=== PATIENT | male | born 1980 | race Caucasian/White ===

== ENCOUNTER 2019-01-28 06:28 | Inpatient (IN) ==
--- NOTE | 2019-01-15 10:53 | PAT Medication Instructions ---
Medication Instructions Date of Service January 15, 2019 Home Medications naproxen sodium [Aleve] 220 mg PO Q12H PRN ASK your surgeon for instructions naproxen sodium [Aleve] 220 mg PO Q12H PRN Other Notes If you have any questions please call us at [phone] or [phone] or [phone] or [phone]
--- NOTE | 2019-01-15 14:14 | Anesthesiology Consultation ---
Date of Service January 15, 2019 Assessment & Plan (1) Encounter for pre-operative examination: - Slight hemolysis on 01/15/19 BMP- at anesthesiologist discretion AM DOS if repeat needed* Chart Review Chart Review: Acceptable Risk for Surgery and Patient seen in Pre Admission Testing Teaching & Discussion Pre-Anesthesia Teaching/Discussion Notes: Instructed NPO after midnight before surgery,except medications with 15 cc of water. Medication instructions p rovided according to the PAT guidelines. History Surgery Operation Date: 01/22/19 07:45 Proposed Procedures p L4-S1 Decompression and Fusion, Spinal Cord Monitoring - Reji Mas DO Height/Weight Height: 5 ft 10 in Weight: 87.3 kg Allergies Allergy/AdvReac Type Severity Reaction Status Date / Time No Known Allergies Allergy Verified 01/14/19 15:06 Medications Home Medications Medication Instructions Recorded Confirmed Last Taken naproxen sodium [Aleve] 220 mg PO Q12H PRN 01/14/19 01/14/19 Unknown Past Medical History Medical History Chronic low back pain with sciatica LLE radiculopathy with LLE neuropathy (occasional) Exercise / Class Metabolic Activity II 4-5 Yardwork/Stairs/Walk up hill Past Family History Family History Father Family history of diabetes mellitus Past Surgical History Surgical History Hx of arthroscopic knee surgery LEFT Past Anesthesia History No Hx of Anesthesia Complications and No Family Hx of Anesthesia Complications History of PONV No Hx of PONV and No Hx of Motion Sickness Social History Smoking Status: Never smoker Do You Dip or Chew Tobacco: No Smoking End Date: STOPPED CHEWING 2 YEARS AGO Hx Alcohol Use: Yes Alcohol type: beer alcohol intake frequency: a few times a week Hx Substance Use: No Review of Systems Patient denies chest pain, shortness of breath, dyspnea on exertion, reflux, cough, wheezing, palpitations. Physical Exam Vital Signs VITALS BP 124/84 P 78 TEMP 98.6 SP02 97%RA RESP 18 PHYSICAL Full neck and c-spine range of motion. Full TMJ range of motion. TMD 3 finger breaths Mallampati Score 3 Dentition: intact, several caps vs. crowns lower front teeth Lungs: clear throughout to auscultation Cardiac: regular rate and rhythm, no murmurs noted Spine: normal Extremities: no edema Trimmed weiner Testing Laboratory Results 01/15/19 14:40 01/15/19 14:40 PT 10.5 Seconds (9.0-12.0) 01/15/19 14:40 INR 1.0 (0.9-1.1) 01/15/19 14:40 APTT 26.2 Seconds (21.0-31.0) 01/15/19 14:40 Urine Color Yellow 01/15/19 14:40 Urine Appearance Turbid (Clear) A 01/15/19 14:40 Urine pH 8.5 (4.5-7.5) H 01/15/19 14:40 Ur Specific [place] 1.019 (1.000-1.030) 01/15/19 14:40 Urine Protein Negative (Negative) 01/15/19 14:40 Urine Glucose (UA) Negative (Negative) 01/15/19 14:40 Urine Ketones Negative (Negative) 01/15/19 14:40 Urine Nitrite Negative (Negative) 01/15/19 14:40 Ur Leukocyte Esterase Negative (Negative) 01/15/19 14:40 Urine WBC (Auto) 0 /hpf (0-5) 01/15/19 14:40 Urine RBC (Auto) 0-4 /hpf (0-4) 01/15/19 14:40 U Hyaline Cast (Auto) 0 /lpf (0-5) 01/15/19 14:40 U Epithel Cells (Auto) 0-5 /lpf (0-5) 01/15/19 14:40 Urine Bacteria (Auto) Negative (Negative) 01/15/19 14:40 Blood Type O Positive 01/15/19 14:40 Antibody Screen NEGATIVE 01/15/19 14:40 Electrocardiogram Date: 01/15/19 Findings: + NSR @ (68) Chest X-Ray Date: 01/15/19 Findings: + NAD
--- NOTE | 2019-01-15 14:42 | XRay Report ---
TWO VIEW CHEST CLINICAL HISTORY: Preoperative examination. FINDINGS: PA and lateral chest radiographs are obtained. No prior studies are available for compariso n at the time of dictation. The cardiomediastinal silhouette is unremarkable. The lungs and pleural spaces are clear. There is no pneumothorax. The bony thorax appears intact. IMPRESSION: No active disease in the chest. Electronically signed by: Paolo Estrada M.D. 01/15/2019 2:41 PM
[2019-01-15 15:54] LABS: Basophils # (auto) 0.02 K/uL (0-0.2); Basophils % (auto) 0.3 %; Eosinophils # (auto) 0.08 K/uL (0-0.5); Eosinophils % (auto) 1.1 %; Hematocrit (blood only) 48.7 % (42-52); Hemoglobin 16.7 g/dL (14.0-18.0); Immature Granulocytes # (auto) 0.02 K/uL (0.00-0.02); Immature Granulocytes % (auto) 0.3 %; Lymphocytes # (auto) 2.42 K/uL (1.2-3.4); Lymphocytes % (auto) 31.8 %; Mean Corpuscular Hemoglobin 29.9 pg (25-34); Mean Corpuscular Hgb Conc 34.3 g/dL (32-36); Mean Corpuscular Volume 87.1 fL (80-100); Mean Platelet Volume 10.6 fL (7.4-10.4); Monocytes # (auto) 0.64 K/uL (0.11-0.59); Monocytes % (auto) 8.4 %; Neutrophils # (auto) 4.43 K/uL (1.4-6.5); Neutrophils % (auto) 58.1 %; Platelet Count 196 K/uL (130-400); RDW Standard Deviation 41.4 fL (36.4-46.3); Red Blood Count 5.59 M/uL (4.7-6.1); White Blood Count 7.61 K/uL (4.8-10.8)
[2019-01-15 16:05] LABS: Appearance Urine Turbid (Clear); Bacteria Urine Automated Negative (Negative); Bilirubin Urine Negative (Negative); Blood Urine Negative (Negative); Cast Urine Automated 0 /lpf (0-5); Color Urine Yellow; Epithelial Cell Urine Auto 0-5 /lpf (0-5); Glucose Urine UA Negative (Negative); Ketones Urine Negative (Negative); Leukocyte Esterase Urine Negative (Negative); Nitrite Urine Negative (Negative); Protein Urine Negative (Negative); RBC Urine Automated 0-4 /hpf (0-4); Specific Gravity Urine 1.019 (1.000-1.030); Urobilinogen Urine Negative (Negative); WBC Urine Automated 0 /hpf (0-5); pH Urine 8.5 (4.5-7.5)
[2019-01-15 16:14] LABS: Partial Thromboplastin Time 26.2 Seconds (21.0-31.0); Prothrombin Time 10.5 Seconds (9.0-12.0)
[2019-01-15 17:04] LABS: BUN Creatinine Ratio 14.7 (10-20); Calcium 8.8 mg/dl (8.5-10.1); Creatinine Clr Calc Pharmacy 91.5 ml/min; Potassium 3.9 mmol/L (3.5-5.1)
[~2019-01-28 06:28] MED LIST: CEFAZOLIN 2000MG 2,000 MG/15 ML SYR IV SCH; LR 15ML/HR IV SCH
[2019-01-28] MEDS ORDERED: fentaNYL citrate 100 MCG/2 ML VIAL ONE ×7 (06:38→10:00)
[2019-01-28] MEDS ORDERED: MIDAZOLAM HCL 1 MG/ML 2ML VIAL ONE (06:39)
[2019-01-28] MEDS ORDERED: HYDROmorphone INJ 2 MG/ML SYR/VIAL ONE ×3 (06:39→10:00)
[2019-01-28] MEDS ORDERED: BACITRACIN INJ 50,000 UNIT VIAL ONE (07:06)
[2019-01-28] MEDS ORDERED: BUPIVACAINE/EPINEPHRINE 0.5% MPF 1:200,000 30 ML VIAL ONE (07:06)
[2019-01-28] MEDS ORDERED: PROMETHAZINE HCL 12.5 MG in SODIUM CHLORIDE 0.9% 50 ML IV PRN ×2 (07:31→11:51)
[2019-01-28] MEDS ORDERED: HYDROmorphone INJ 2 MG/ML SYR/VIAL IV PRN (07:31)
[2019-01-28] MEDS ORDERED: ONDANSETRON INJ 2 MG/ML 2 ML VIAL IV PRN ×2 (07:31→11:51)
[2019-01-28] MEDS ORDERED: ePHEDrine sulfate 50 MG/ML AMP IV PRN (07:31)
[2019-01-28] MEDS ORDERED: ATROPINE SULFATE 0.1 MG/ML 10ML SYR IV PRN (07:31)
--- NOTE | 2019-01-28 07:36 | History & Physical Bridge Note ---
Date of Service January 28, 2019 History & Physical Bridge Note I have examined the patient, reviewed the History & Physical and in the interval since the performance of the History & Physical I have noted the following changes of clinical significance: no changes noted
--- NOTE | 2019-01-28 07:38 | History & Physical Report ---
Date of Service January 28, 2019 Assessment & Plan (1) Spinal stenosis, lumbar region with neurogenic claudication: L4-S1 decompression and fusion Present on Admission?: Yes History of Present Illness Chief Complaint: Back and leg pain Primary Care Provider: Phillip Friend PA-C This is a 38-year-old male presents with chronic persistent back and leg pain after failing extensive course of nonoperative care is here for surgical intervention. Allergies Allergy/AdvReac Type Severity Reaction Status Date / Time No Known Allergies Allergy Verified 01/28/19 06:55 Home Medications Home Medications Medication Instructions Recorded Confirmed Type naproxen sodium [Aleve] 220 mg PO Q12H PRN 01/14/19 01/28/19 History Past Med/Surg History Medical History Chronic low back pain with sciatica LLE radiculopathy with LLE neuropathy (occasional) Surgical History Hx of arthroscopic knee surgery LEFT Family History Father Family history of diabetes mellitus Social History Preferred Language: Jordanian Communication Ability: Effective Beliefs That Will Affect Care: None Current Living Situation: Family Feels Safe at Home: Yes Smoking Status: Never smoker Do You Dip or Chew Tobacco: No ; Smoking End Date: STOPPED CHEWING 2 YEARS AGO ; Second Hand Exposure: No ; Hx Alcohol Use: Yes Alcohol type: beer Hx Substance Use: No Physical Exam Physical Exam: Patient alert and oriented neurologically intact. Results & Data Vital Signs (Past 12 Hours) Vital Signs Temp Pulse Resp BP Pulse Ox 01/28/19 06:57 36.8 C 88 18 132/85 97
[2019-01-28] MEDS ORDERED: FLOSEAL HEMOSTATIC MATRIX 10ML TOP ONE (08:40)
[2019-01-28] MEDS ORDERED: FLOSEAL HEMOSTATIC MATRIX 5ML TOP ONE (08:40)
[2019-01-28] MEDS ORDERED: LIDOCAINE HCL 2% 2 ML VIAL/AMP(20MG/ML) INFIL ONE (08:44)
[2019-01-28] MEDS ORDERED: NEOSTIGMINE METHYLSULFATE 1 MG/ML 10ML VIAL ONE (08:44)
[2019-01-28] MEDS ORDERED: PROPOFOL IV EMULSION 10 MG/ML 20 ML VIAL IV ONE (08:44)
[2019-01-28] MEDS ORDERED: ONDANSETRON INJ 2 MG/ML 2 ML VIAL ONE (08:44)
[2019-01-28] MEDS ORDERED: DEXAMETHASONE SOD INJ 4 MG/ML VIAL ONE (08:44)
[2019-01-28] MEDS ORDERED: ROCURONIUM BROMIDE 10 MG/ML 5 ML VIAL ONE (08:44)
[2019-01-28] MEDS ORDERED: GLYCOPYRROLATE 0.2 MG/ML VIAL ONE (08:44)
[2019-01-28] MEDS ORDERED: ESMOLOL HCL INJ 10 MG/ML 10ML VIAL IV ONE (08:44)
[2019-01-28] MEDS ORDERED: KETOROLAC 30 MG/ML VIAL ONE (10:01)
[2019-01-28] MEDS ORDERED: LARYING-O-JET KIT (LTA) ONE (10:01)
--- NOTE | 2019-01-28 10:22 | Operative Report ---
Post Operative Report Pre & Post Diagnosis Operation Date: 01/22/19 10:25 <No data on this case meets the specified criteria> Operation Date: 01/28/19 07:45 Pre-Op Diagnosis: LUMBAR SPINAL STENOSIS W/OUT NEUROGENIC CLAUDICATI Post-Op Diagnosis: LUMBAR SPINAL STENOSIS W/OUT NEUROGENIC CLAUDICATI Procedure Operation Date: 01/22/19 10:25 <No data on this case meets the specified criteria> Operation Date: 01/28/19 07:45 Actual Procedures #1 lumbar decompression with bilateral medial facetectomies and foraminotomies L4-5 L5-S1. #2 posterior spinal fusion L4-5 L5-S1. #3 placement posterior instrumentation L4-5 L5-S1. #4 interbody fusion L4-5 L5-S1. #5 placement of titanium 12 x 26 mm cage at L4-5 and L5-S1. #6 placement of local autograft in the posterior lateral gutters. #7 placement infuse collagen sponge, master graft in the posterior lateral gutters and ostial amp and interbody space. Surgeon Reji Mas, DO Conservation Worker None Estimated Blood Loss 225 Findings Consistent with Post-Op Diagnosis Specimens None Indications 38-year-old male presents with above-mentioned diagnosis after failing extensive course of nonoperative care he elected undergo the above-mentioned procedure. Description of Procedure Patient was met with identified and informed consent obtained. Patient was then taken to the operative suite underwent intubation placed in a prone position the Ranjeet table on top of the Sriram frame. All bony prominences well-padded eyes inspected to ensure no external pressure placed upon. This point the lumbar spine was prepped and draped in the normal sterile fashion. Sharp dissection with the assistance of Bovie cautery was performed down to and exposing the lamina and transverse processes of L4-L5 and the sacral ala bilaterally. From a caudal to cephalad fashion complete laminectomy L5 and L4 was performed including bilateral medial facetectomies and foraminotomies addressing significant neural compression. Pedicle screws were then placed in L4-L5 and S1 levels bilaterally with assistance of fluoroscopy the purposes oscar placed. By way of a transforaminal approach on the left complete discectomy of L5-S1 was performed in plate graded to subcortical bleeding bone and a 12 x 26 mm titanium cage filled with osteo-amp bone graft tapped in position. Then proceeded to L4- [address] of a trans-foraminal approach on the left complete discectomy performed in plate graded to subcortical bleeding bone and a 12 x 26 mm titanium cage filled with osteo-amp bone graft tapped into position. Rods were then compressed locked into final position bilaterally. The transverse processes of L4-L5 and the sacral ala bur to subcortical bleeding bone. Infuse collagen sponge master graft local autograft placed in the posterior lateral gutters. 15 round HITESH inserted. Incision was then closed with 1 Vicryl in the fascia 2-0 Vicryl subcutaneously and 4 Monocryl for final skin closure. Steri-Strips dressings placed. Patient will continue to PACU stable condition. Please note spinal cord monitoring was utilized that the procedure no changes noted. I attest to the content of the Intraoperative Record and any orders documented therein. Any exceptions are noted below.
[2019-01-28] MEDS: fentaNYL citrate 100 MCG/2 ML VIAL IV PRN ×2 (10:50→10:55)
--- NOTE | 2019-01-28 11:02 | Fluoroscopy Report ---
FL lumbar spine 2-3V CLINICAL HISTORY: L4-S1 DECOMPRESSION/FUSION COMPARISON STUDY: None. FLUOROSCOPY TIME: 23 seconds. FLUOROSCOPIC IMAGES: 2. FINDINGS: These images demonstrate L4-L5 and L5-S1 discectomies with interbody spacer placement. Ther e is a posterior decompression with bilateral pedicle screws at the L4, L5 and S1 levels with interco nnecting rods. Hardware is intact. There are no unexpected radiopaque foreign bodies. IMPRESSION: Expected findings following L4-S1 posterior decompression, discectomy and bilateral pedic le screw fusion. Electronically signed by: Emerson Gutiérrez M.D. 01/28/2019 11:01 AM
--- NOTE | 2019-01-28 11:15 | Anesthesiology Progress Note ---
Date of Service January 28, 2019 Anesthesia Post Procedure Vital Signs Vital Signs: Temp Pulse Pulse Resp BP Pulse Ox 01/28/19 11:10 36.8 C 94 H 13 121/81 99 01/28/19 11:00 36.2 C L 93 H 15 129/83 100 01/28/19 10:50 36.2 C L 93 H 11 L 153/90 H 100 01/28/19 10:40 36.2 C L 89 14 136/89 100 01/28/19 10:30 36.2 C L 95 H 14 116/85 96 01/28/19 06:57 36.8 C 88 18 132/85 97 Pain Intensity Lower Back: Pain Intensity: 2 Transfer of Care Handoff Completed per policy Notes Mental Status: alert / awake / arousable and participated in evaluation Patient Amnestic to Procedure: Yes Nausea / Vomiting: adequately controlled Pain: adequately controlled Airway Patency, RR, SpO2: stable & adequate BP & HR: stable & adequate Hydration State: stable & adequate Anesthetic Complications: no major complications apparent and Pt Satisfied with anesthetic care
[2019-01-28] MEDS ORDERED: MAGNESIUM HYDROXIDE SUSP 30 ML UDC PO PRN (11:51)
[2019-01-28] MEDS ORDERED: NALOXONE HCL 0.4 MG/1 ML VIAL/CARP IV PRN (11:51)
[2019-01-28] MEDS ORDERED: ONDANSETRON 4 MG TAB PO PRN (11:51)
[2019-01-28] MEDS ORDERED: ALUMINUM/MAGNESIUM SUSP 30 ML UDC PO PRN (11:51)
[2019-01-28] MEDS ORDERED: SOD PHOSPHATE/SOD BIPHOSPHATE ENEMA 132 ML BTL PR PRN (11:51)
[2019-01-28] MEDS ORDERED: ACETAMINOPHEN 1,000 MG/100 ML VIAL IV PRN (11:51)
[2019-01-28] MEDS ORDERED: LORazepam 0.5 MG/1 ML VIAL IV PRN (11:51)
[2019-01-28] MEDS ORDERED: METOCLOPRAMIDE HCL INJ 5 MG/ML 2 ML VIAL IV PRN (11:51)
[2019-01-28] MEDS ORDERED: DO NOT ADMINISTER FLU VACCINE PRN (11:51)
[2019-01-28] MEDS ORDERED: ACETAMINOPHEN 500 MG TAB PO PRN (11:51)
[2019-01-28] MEDS ORDERED: FAMOTIDINE 20 MG TAB PO PRN (11:51)
[2019-01-28] MEDS ORDERED: LORazepam 0.5 MG TAB PO PRN (11:51)
[2019-01-28] MEDS ORDERED: DO NOT ADMINISTER PNEUMOCOCCAL VACCINE PRN (11:51)
[2019-01-28] MEDS ORDERED: BISACODYL 10 MG SUPP PR PRN (11:51)
[2019-01-28] MEDS: LACTATED RINGER'S 1,000 ML IV SCH ×3 (12:04→23:30)
[2019-01-28] MEDS: KETOROLAC 30 MG/ML VIAL IV SCH ×3 (12:40→23:30)
[2019-01-28] MEDS: OXYCODONE HCL IR 5 MG TAB (IMMEDIATE RELEASE) PO PRN ×2 (13:10→21:00)
[2019-01-28] MEDS: CEFAZOLIN 2000MG 2,000 MG/15 ML SYR IV SCH ×2 (14:33→22:24)
[2019-01-28] MEDS: DOCUSATE SODIUM/SENNA 50/8.6MG TAB PO SCH (21:00)
[2019-01-29] MEDS: POLYETHYLENE (MIRALAX) 17 GM PACK PO SCH ×4 (05:49→23:16)
[2019-01-29] MEDS: KETOROLAC 30 MG/ML VIAL IV SCH (05:50)
[2019-01-29 06:21] LABS: Basophils # (auto) 0.01 K/uL (0-0.2); Basophils % (auto) 0.1 %; Eosinophils # (auto) 0.02 K/uL (0-0.5); Eosinophils % (auto) 0.2 %; Hematocrit (blood only) 38.3 % (42-52); Hemoglobin 13.4 g/dL (14.0-18.0); Immature Granulocytes # (auto) 0.01 K/uL (0.00-0.02); Immature Granulocytes % (auto) 0.1 %; Lymphocytes # (auto) 1.39 K/uL (1.2-3.4); Lymphocytes % (auto) 14.3 %; Mean Corpuscular Hemoglobin 29.1 pg (25-34); Mean Corpuscular Volume 83.1 fL (80-100); Mean Platelet Volume 9.5 fL (7.4-10.4); Monocytes # (auto) 1.06 K/uL (0.11-0.59); Monocytes % (auto) 10.9 %; Neutrophils % (auto) 74.4 %; Platelet Count 153 K/uL (130-400); RDW Coefficient of Variation 12.8 % (11.5-14.5); RDW Standard Deviation 38.7 fL (36.4-46.3); Red Blood Count 4.61 M/uL (4.7-6.1); White Blood Count 9.69 K/uL (4.8-10.8)
[2019-01-29 06:55] LABS: BUN Creatinine Ratio 13.9 (10-20); Calcium 7.9 mg/dl (8.5-10.1); Creatinine Clr Calc Pharmacy 116.2 ml/min; Est GFR (African American) 125.7; Est GFR (Non-African American) 108.5
[2019-01-29] MEDS: OXYCODONE HCL IR 5 MG TAB (IMMEDIATE RELEASE) PO PRN ×4 (07:24→22:20)
--- NOTE | 2019-01-29 08:33 | Anesthesiology Progress Note ---
Date of Service January 29, 2019 Anesthesia Post Procedure Vital Signs Vital Signs: Temp Pulse Pulse Resp BP Pulse Ox 01/29/19 07:30 36.6 C 68 16 115/75 94 01/29/19 03:06 36.8 C 96 H 16 107/64 95 01/28/19 23:25 36.7 C 104 H 16 105/66 94 01/28/19 19:10 36.8 C 82 17 115/74 97 01/28/19 15:41 36.8 C 93 H 17 111/74 96 01/28/19 14:32 80 18 119/78 100 01/28/19 13:39 36.7 C 89 18 117/74 98 01/28/19 12:29 101 H 16 120/70 99 01/28/19 12:07 36.4 C L 85 18 115/77 97 01/28/19 11:35 36.7 C 85 18 111/75 92 01/28/19 11:20 36.8 C 87 15 129/79 99 01/28/19 11:10 36.8 C 94 H 13 121/81 99 01/28/19 11:00 36.2 C L 93 H 15 129/83 100 01/28/19 10:50 36.2 C L 93 H 11 L 153/90 H 100 01/28/19 10:40 36.2 C L 89 14 136/89 100 01/28/19 10:30 36.2 C L 95 H 14 116/85 96 Pain Intensity Lower Back: Pain Intensity: 3 Notes Mental Status: alert / awake / arousable and participated in evaluation Patient Amnestic to Procedure: Yes Nausea / Vomiting: adequately controlled Pain: adequately controlled Airway Patency, RR, SpO2: stable & adequate BP & HR: stable & adequate Hydration State: stable & adequate Anesthetic Complications: no major complications apparent and Pt Satisfied with anesthetic care
--- NOTE | 2019-01-29 13:42 | Orthopedic Progress Note ---
Date of Service January 29, 2019 Assessment & Plan (1) Spinal stenosis, lumbar region with neurogenic claudication: Patient doing nicely postoperatively. We will continue with physical therapy monitor HITESH output anticipate discharge home Sunday. Present on Admission?: Yes Subjective Patient's back pain is controlled leg symptoms markedly improved. Physical Exam Physical Exam: Patient is good strength testing appears comfortable ambulating without difficulty. Results & Data Vital Signs (Past 12 Hours) Vital Signs Temp Pulse Resp BP Pulse Ox 01/29/19 07:30 36.6 C 68 16 115/75 94 01/29/19 03:06 36.8 C 96 H 16 107/64 95
[2019-01-29] MEDS: TRAMADOL HCL 50 MG TABLET PO PRN (15:38)
[2019-01-29] MEDS: DOCUSATE SODIUM/SENNA 50/8.6MG TAB PO SCH (20:36)
[2019-01-30] MEDS: TRAMADOL HCL 50 MG TABLET PO PRN (01:38)
[2019-01-30] MEDS: OXYCODONE HCL IR 5 MG TAB (IMMEDIATE RELEASE) PO PRN ×4 (05:05→18:55)
[2019-01-30] MEDS: POLYETHYLENE (MIRALAX) 17 GM PACK PO SCH ×3 (05:06→18:02)
--- NOTE | 2019-01-30 08:19 | Orthopedic Progress Note ---
Date of Service January 30, 2019 Assessment & Plan (1) Spinal stenosis, lumbar region with neurogenic claudication: This time we will continue physical therapy monitor his HITESH output anticipate discharge home tomorrow. Present on Admission?: Yes Subjective Patient's back pain is controlled leg symptoms markedly improved. Physical Exam Physical Exam: On exam is good strength testing. Appears comfortable. Results & Data Vital Signs (Past 12 Hours) Vital Signs Temp Pulse Resp BP Pulse Ox 01/30/19 07:40 37.1 C 97 H 18 132/86 98 01/29/19 23:04 37.4 C 107 H 16 117/75 93
[2019-01-30] MEDS: DOCUSATE SODIUM/SENNA 50/8.6MG TAB PO SCH (20:11)
[2019-01-30] MEDS: HYDROmorphone INJ 0.5 MG/0.5 ML SYR IV PRN (21:33)
[2019-01-31] MEDS: OXYCODONE HCL IR 5 MG TAB (IMMEDIATE RELEASE) PO PRN ×4 (00:23→16:00)
[2019-01-31] MEDS ORDERED: Nursing to Pharmacy Communication ONE (00:31)
[2019-01-31] MEDS: POLYETHYLENE (MIRALAX) 17 GM PACK PO SCH (00:50)
[2019-01-31] MEDS: HYDROmorphone INJ 0.5 MG/0.5 ML SYR IV PRN ×2 (02:06→08:04)
[2019-01-31] MEDS: TRAMADOL HCL 50 MG TABLET PO PRN ×4 (07:04→22:51)
[2019-01-31] MEDS ORDERED: KETOROLAC 30 MG/ML VIAL IV ONE (09:52)
[2019-01-31] MEDS ORDERED: DEXAMETHASONE SOD PHOSPHATE 8 MG in SYRINGE 0 ML IV ONE (10:30)
--- NOTE | 2019-01-31 12:24 | Orthopedic Progress Note ---
Date of Service January 31, 2019 Assessment & Plan (1) Spinal stenosis, lumbar region with neurogenic claudication: At this time he has significant postoperative back pain. He is also struggling with some urinary retention. We will begin Toradol today asked that he decrease narcotics to the best of his ability. We will discontinue his drain today. Reassess in a.m. hopefully discharge home tomorrow. Present on Admission?: Yes Subjective Patient complaining of fairly severe back pain and difficulty urinating. Physical Exam Physical Exam: Leg symptoms are still markedly improved. Neurologically intact but in obvious pain or discomfort today. Results & Data Vital Signs (Past 12 Hours) Vital Signs Temp Pulse Resp BP Pulse Ox 01/31/19 06:52 38.0 C H 107 H 18 112/83 97 01/31/19 00:28 37.6 C H
[2019-01-31] MEDS: KETOROLAC 30 MG/ML VIAL IV PRN (17:50)
[2019-01-31] MEDS: DOCUSATE SODIUM/SENNA 50/8.6MG TAB PO SCH (19:08)
[2019-02-01] MEDS: OXYCODONE HCL IR 5 MG TAB (IMMEDIATE RELEASE) PO PRN (00:16)
[2019-02-01] MEDS: KETOROLAC 30 MG/ML VIAL IV PRN (01:13)
[2019-02-01] MEDS: TRAMADOL HCL 50 MG TABLET PO PRN ×2 (05:58→10:46)
--- NOTE | 2019-02-01 10:12 | Discharge Summary ---
Date of Service February 01, 2019 Admission HPI Per Admitting Provider This is a 38-year-old male presents with chronic persistent back and leg pain after failing extensive course of nonoperative care is here for surgical intervention. Principal Diagnosis Lumbar spinal stenosis with neurogenic claudication and radiculopathy Discharge Data Allergies Allergy/AdvReac Type Severity Reaction Status Date / Time No Known Allergies Allergy Verified 01/28/19 06:55 Consultations 01/28/19 11:51 Consult Case Management - Discharge Planning Routine Procedures Performed Operation Date: 01/22/19 10:25 <No data on this case meets the specified criteria> Operation Date: 01/28/19 07:45 Actual Procedures p L4-S1 Decompression and Fusion, Spinal Cord Monitoring(Not Applicable) - Reji Mas DO Ordered Studies 01/28/19 07:45 FL fluoroscopy <1hr Routine [place] lumbar spine 2-3V Routine Hospital Course (1) Spinal stenosis, lumbar region with neurogenic claudication: Patient underwent lumbar decompression fusion tolerated this well was taken to the orthopedic for postoperative. Postop day 1 he was up and ambulating leg pain markedly improved he progressed appropriately throughout his hospital stay HITESH drain decreasing appropriately. Pain controlled. Subsequently discharged home. Discharge orders instructions from the chart for further review. Total Time Total Time Spent Total Time Spent (In Minutes): 30 minutes Discharge Plan Discharge Items Patient Disposition: Home - Self-Care Reason For Visit: LUMBAR SPINAL STENOSIS W/OUT NEUROGENIC CLAUDICATI Discharge Diagnosis: Lumbar spinal stenosis with neurogenic claudication Discharge Goals: Decrease discomfort Activity: Per 'Additional Instructions' section Non-emergency contact: Primary Care Provider Call non-emergency contact if: you have any medication questions Follow-up/Referrals: Phillip Friend PA-C [Primary Care Provider] - Diet: Regular Addtl Provider Instructions: ACTIVITY RECOMMENDATIONS: SELF CARE INSTRUCTIONS AFTER THORACIC/LUMBAR FUSIONS 1. You may walk to your tolerance. It is good exercise for your legs and back. Expect some back and intermittent leg aches and pains. 2. You may perform "counter-top" level activities (make a sandwich, thierry with a project, etc.). 3. No bending or lifting of more than 10 pounds or back twisting of any nature (roll like a log when turning in bed). 4. You may ride in a car for 20-30 minutes at a time. No driving until after your first visit with your doctor. 5. Frequent changes of position and restricting sitting to 30 minutes at a time will help limit the amount of back spasms and stiffness you may experience. 6. You may discontinue the use of ambulatory aids (cane, crutches, etc.) once your strength and confidence allow. 7. You may manager financial the shower and let water strike your incision when you arrive home at least once daily. Do not take a tub bath, sit in a hot tub or go into a swimming pool until after your first recheck in the office. SPECIAL CARE INSTRUCTIONS: VERY IMPORTANT TO READ AND REVIEW A. Your surgical incision has been closed with a cosmetic suture under the skin that will dissolve in about 6 weeks. In 14 days, you can use a pair of clean scissors and cut the suture that is left outside of the skin at the ends of your incision. 1. The small skin tapes can be removed 7 days after surgery if they have not fallen off by that point. 2. You may keep the wound open to air as much as possible to promote healing after post-op day number 5 unless told otherwise by your doctor. 3. If you think the wound looks like it is becoming infected (redness or worsening drainage) and/or you are experiencing fever, chill or worsening back pain and muscle spasms, contact the office so that we may evaluate you as soon as possible. B. Complications are uncommon, but please contact us if you have any signs or symptoms of: 1. wound infection (fever higher than 102.5 degrees F, redness, separation of wound, drainage, or increasing pain from the incision) 2. blood clots in legs (pain, swelling, redness and warmth in legs) 3. urinary tract infection (fever higher than 102.5 degrees F, burning upon urination or increased frequency of urination) 4. nerve problems (inability to walk on your toes or heels, numbness, loss of bowel or bladder control) 5. any other symptoms that concern you C. Please call the office at if you have any concerns or questions about your operation or recovery. D. No smoking! Smoking drastically decreases the chance of a solid fusion. E. Do not take any anti-inflammatory medications (Indocin, Advil, Motrin, Aspirin, Naprosyn, etc.) as these may inhibit the chance of a solid fusion. Tylenol is okay to take for pain. MANAGING PAIN AFTER SPINAL SURGERY 1. Narcotic medication is intended for short-term use and will be provided for surgical pain. Surgical pain usually lasts for a period of 4-6 weeks. Narcotic medication includes Percocet, Vicodin, Darvocet, Tylenol #3 or Lortab. 2. Longer-term pain is more appropriately treated with non-narcotic medication such as Tylenol ES. 3. Muscle spasm is not appropriately treated with narcotics. Muscle relaxers such as Soma, Flexeril or Skelaxin can be used along with Tylenol ES. 4. Remember that we all live with some "aches and pains". This is not unusual or uncommon after an injury or as we get older. a. Back pain is expected and may include muscle spasms for 4 to 6 weeks after surgery. The pain should gradually improve. If the pain worsens for no apparent reason, please contact the office. b. Intermittent leg pain may also be experienced and should not be concerned about unless it worsens for no apparent reason. If so, please contact the office. 5. We will provide appropriate medication within the normal guidelines of their prescribed use. We will also be very cautious and aware of potential abuse and extended duration of patients' medication needs. a. Pain medications are for your comfort and to assist with sleep and rest so that the tissue can heal. They are not provided in order to return to normal activity and should not be used through the day. To do so or worsening pain at night can result from ongoing tissue damage and development of tolerance to the prescribed medicine. 6. Please allow 2-3 days to process refills. Prescriptions will not be mailed but must be picked up at the office. FOLLOW UP VISIT: Keep your scheduled follow-up appointment. Any questions, please call the office at . Prescriptions: New tramadol 50 mg Tablet 50 mg PO Q4H PRN (Reason: Pain, Moderate) Qty: 30 RF: 0 oxycodone 5 mg Tablet 5 mg PO Q4H PRN (Reason: Pain, Severe) Qty: 30 RF: 0 Continued naproxen sodium [Aleve] 220 mg Capsule 220 mg PO Q12H PRN (Reason: Pain) RF: 0 Stand-Alone Forms: [facility] Discharge Orders: Discharge Order (Routine); Ordered 02/01/19 Ordered By: Reji Mas Admission Data Admit Date/Time: 01/28/19 10:25 Attending Provider: Reji Mas Admit Provider: Reji Mas Primary Care Provider: Phillip Friend Service: Surgical Services
== END 2019-02-01 12:15 | disposition home or self-care (01) | DRG 455 ==
LOC: ASU 06:28 → 3E 10:25
DX: M48.062 Spinal stenosis, lumbar region with neurogenic claudication

== ENCOUNTER 2019-02-18 13:06 | Inpatient (IN) ==
[2019-02-18] MEDS ORDERED: LORazepam 1 MG/2 ML VIAL IV PRN (14:13)
[2019-02-18] MEDS ORDERED: PROMETHAZINE HCL 12.5 MG in SODIUM CHLORIDE 0.9% 50 ML IV PRN (14:13)
[2019-02-18] MEDS ORDERED: ONDANSETRON INJ 2 MG/ML 2 ML VIAL IV PRN (14:13)
[2019-02-18] MEDS ORDERED: ACETAMINOPHEN 325 MG TAB PO PRN (14:13)
[2019-02-18] MEDS ORDERED: PATIENT'S HEIGHT AND/OR WEIGHT NEEDED SCH (14:30)
[2019-02-18 14:47] LABS: Basophils # (auto) 0.01 K/uL (0-0.2); Basophils % (auto) 0.1 %; Eosinophils # (auto) 0.02 K/uL (0-0.5); Eosinophils % (auto) 0.2 %; Hematocrit (blood only) 42.9 % (42-52); Hemoglobin 14.5 g/dL (14.0-18.0); Immature Granulocytes # (auto) 0.02 K/uL (0.00-0.02); Immature Granulocytes % (auto) 0.2 %; Lymphocytes # (auto) 0.83 K/uL (1.2-3.4); Lymphocytes % (auto) 9.5 %; Mean Corpuscular Hgb Conc 33.8 g/dL (32-36); Mean Corpuscular Volume 83.6 fL (80-100); Mean Platelet Volume 9.7 fL (7.4-10.4); Monocytes # (auto) 0.65 K/uL (0.11-0.59); Monocytes % (auto) 7.4 %; Neutrophils # (auto) 7.24 K/uL (1.4-6.5); Neutrophils % (auto) 82.6 %; Platelet Count 224 K/uL (130-400); RDW Coefficient of Variation 12.7 % (11.5-14.5); RDW Standard Deviation 38.6 fL (36.4-46.3); Red Blood Count 5.13 M/uL (4.7-6.1); White Blood Count 8.77 K/uL (4.8-10.8)
[2019-02-18] MEDS: LACTATED RINGER'S 1,000 ML IV SCH (15:03)
[2019-02-18 15:04] LABS: Albumin Level 3.4 gm/dl (3.4-5.0); BUN Creatinine Ratio 10.9 (10-20); Calcium 9.1 mg/dl (8.5-10.1); Creatinine Clr Calc Pharmacy 90.7 ml/min; Est GFR (Non-African American) 81.1; Potassium 4.2 mmol/L (3.5-5.1)
[2019-02-18 15:06] LABS: Albumin Globulin Ratio 0.8 (0.9-2); Bilirubin,Total 0.6 mg/dl (0.2-1); Globulin 4.3 gm/dl (2.5-4.0); Total Protein 7.7 gm/dl (6.4-8.2)
[2019-02-18] MEDS: OXYCODONE/ACETAMINOPHEN 5mg/325mg TAB PO PRN ×2 (15:17→19:36)
[2019-02-18] MEDS: LORazepam 1 MG TAB PO PRN ×2 (16:29→22:34)
[2019-02-18] MEDS: HYDROmorphone INJ 1 MG/ML SYRINGE IV PRN ×2 (18:04→23:40)
[2019-02-18] MEDS: DOCUSATE SODIUM 100 MG CAP PO SCH (19:37)
[2019-02-19] MEDS: OXYCODONE/ACETAMINOPHEN 5mg/325mg TAB PO PRN ×5 (03:31→21:39)
[2019-02-19] MEDS: LACTATED RINGER'S 1,000 ML IV SCH ×2 (03:31→15:54)
[2019-02-19] MEDS ORDERED: CEFAZOLIN 2000MG 2,000 MG/15 ML SYR IV SCH (06:00)
[2019-02-19] MEDS: DOCUSATE SODIUM 100 MG CAP PO SCH ×2 (07:51→20:21)
[2019-02-19] MEDS: HYDROmorphone INJ 1 MG/ML SYRINGE IV PRN ×4 (08:49→23:27)
--- NOTE | 2019-02-19 09:34 | History & Physical Report ---
Date of Service February 19, 2019 Assessment & Plan (1) Spinal stenosis, lumbar region with neurogenic claudication: At this time patient was admitted for adequate pain control and to have him evaluated for anesthesia for urgent revision decompression fusion L5-S1. Risk benefits pros cons and alternatives were outlined in detail. Patient understands and agrees. At this time we are awaiting authorization for surgery soon as possible. Present on Admission?: Yes History of Present Illness Chief Complaint: Severe left leg pain. Primary Care Provider: Phlilip Friend PA-C This is a 38-year-old male well-known to the status post lumbar decompression and fusion L4-5 L5-S1. Unfortunately several days postop he began experiencing left leg pain. It was severe in nature. Markedly limiting controlled with medication. Imaging performed in office does demonstrate evidence of migration of the L5-S1 interbody cage posteriorly. This would account for his radiculopathy. Due to his severe pain and inability to manage it at home he was admitted to the hospital and we are planning an urgent revision procedure. Allergies Allergy/AdvReac Type Severity Reaction Status Date / Time No Known Allergies Allergy Verified 01/28/19 06:55 Home Medications Home Medications Medication Instructions Recorded Confirmed Type naproxen sodium [Aleve] 220 mg PO Q12H PRN 01/14/19 01/28/19 History oxycodone 5 mg PO Q4H PRN #30 tab 01/29/19 Rx tramadol 50 mg PO Q4H PRN #30 tab 01/29/19 Rx Past Med/Surg History Social History Preferred Language: German Communication Ability: Effective Baseball Scout Required: No Beliefs That Will Affect Care: None marital status: Current Living Situation: Family Other Information That Helps Us Care for You: No Feels Safe at Home: Yes Smoking Status: Never smoker Do You Dip or Chew Tobacco: No ; Second Hand Exposure: No ; Tobacco Cessation Education Requested by Patient: No Hx Alcohol Use: Yes Alcohol type: beer Hx Substance Use: No Physical Exam Physical Exam: On exam he can stand only. He is obviously lost weight over the past several days as he is been able to eat secondary to pain. He is able to stand on his toes and heels but there is appreciable atrophy on the left calf compared to the right. He has severe gross tension signs with straight leg raising on the left. Results & Data Vital Signs (Past 12 Hours) Vital Signs Temp Pulse Pulse Resp BP Pulse Ox 09/11/19 07:30 37 C 102 H 14 118/76 92 02/18/19 23:27 37.5 C 105 H 18 128/79 Code Status & VTE Plan VTE Prophylaxis Plan VTE Prophylaxis will be ordered: Yes
[2019-02-19] MEDS: LORazepam 1 MG TAB PO PRN ×2 (10:44→21:39)
[2019-02-19] MEDS: GABAPENTIN 300 MG CAP PO SCH ×2 (13:25→20:21)
--- NOTE | 2019-02-19 13:34 | Anesthesiology Consultation ---
Date of Service February 19, 2019 Assessment & Plan (1) Encounter for pre-operative examination: Chart Review Chart Review: Acceptable Risk for Surgery, Patient NOT seen in Pre Admission Testing and entry level marketing assistant initiated Consults Requested none History Surgery Operation Date: 02/20/19 11:30 Proposed Procedures p L5-S1 Revision Decompression and Fusion - Reji Mas DO Height/Weight Height: 5 ft 10 in Weight: 82.2 kg Allergies Allergy/AdvReac Type Severity Reaction Status Date / Time No Known Allergies Allergy Verified 01/28/19 06:55 Medications Home Medications Medication Instructions Recorded Confirmed Last Taken naproxen sodium [Aleve] 220 mg PO Q12H PRN 01/14/19 01/28/19 01/14/19 oxycodone 5 mg PO Q4H PRN #30 tab 01/29/19 Unknown tramadol 50 mg PO Q4H PRN #30 tab 01/29/19 Unknown Active Medications Generic Name Dose Route Start Last Admin Trade Name Freq PRN Reason Stop Dose Admin Docusate Sodium 100 mg 02/18/19 21:00 02/19/19 07:51 Colace PO 03/20/19 20:59 100 mg BID DANNY Administration Gabapentin 300 mg 02/19/19 14:00 02/19/19 13:25 Neurontin PO 03/21/19 13:59 300 mg TID DANNY Administration Hydromorphone HCl 1 mg 02/18/19 14:13 02/19/19 13:22 Dilaudid IV 03/04/19 14:12 1 mg [id number] PRN Administration Pain Lactated Ringer's 1,000 mls @ 75 mls/hr 02/18/19 14:15 02/19/19 15:54 Lr IV 03/20/19 14:14 75 mls/hr .[id number] DANNY Administration Lorazepam 1 mg 02/18/19 14:13 02/19/19 10:44 Ativan PO 03/20/19 14:12 1 mg Q6H PRN Administration Anxiety/spasms Oxycodone/Acetaminophen 1 - 2 tab 02/18/19 14:13 02/19/19 15:58 Percocet 5mg/325mg PO 03/04/19 14:12 2 tab Q4H PRN Administration moderate to severe pain Past Medical History Medical History Chronic low back pain with sciatica LLE radiculopathy with LLE neuropathy (occasional) Exercise / Class Metabolic Activity II 4-5 Yardwork/Stairs/Walk up hill (Prior to back surgery in January) Past Family History Family History Father Family history of diabetes mellitus Past Surgical History Surgical History History of back surgery Hx of arthroscopic knee surgery LEFT Past Anesthesia History No Hx of Anesthesia Complications and No Family Hx of Anesthesia Complications History of PONV No Hx of PONV and No Hx of Motion Sickness Social History Smoking Status: Never smoker Do You Dip or Chew Tobacco: No Hx Alcohol Use: Yes Alcohol type: beer alcohol intake frequency: a few times a week Alcohol Intake Frequency Comment: none since back surgery 02/06- Hx Substance Use: No Physical Exam Vital Signs Last Vital Signs Temp 36.9 C 02/19/19 15:08 Pulse 101 H 02/19/19 15:08 Resp 18 02/19/19 15:08 BP 123/77 02/19/19 15:08 Pulse Ox 90 02/19/19 15:08 Testing Laboratory Results 02/18/19 14:32 02/18/19 14:32 Other Testing Electrocardiogram Date: 01/15/19 Findings: + NSR @ (68) Chest X-Ray Date: 01/15/19 Findings: + NAD
--- NOTE | 2019-02-19 15:46 | Orthopedic Progress Note ---
Date of Service February 19, 2019 Assessment & Plan (1) Spinal stenosis, lumbar region with neurogenic claudication: At this time will be made n.p.o. after midnight. We will plan for revision of the interbody fusion L5-S1 tomorrow morning. This is definitely urgent as he is noting strength deficits and of course his severe discomfort. Present on Admission?: Yes Subjective Patient still struggling with significant left leg pain. Marked inability to ambulate comfortable. Fortunately the IV narcotics are providing some relief pain is a bit more controlled. Physical Exam Physical Exam: On exam he is able to sit up slightly in bed. He has significant tension signs straight leg raising on the left there is atrophy of the left gastroc compared to the right. Results & Data Vital Signs (Past 12 Hours) Vital Signs Temp Pulse Pulse Resp BP Pulse Ox 02/19/19 15:08 36.9 C 101 H 18 123/77 90 02/19/19 12:01 97 H 18 121/75 94 02/19/19 07:30 37 C 102 H 14 118/76 92
[2019-02-20] MEDS: HYDROmorphone INJ 1 MG/ML SYRINGE IV PRN ×2 (01:36→06:40)
[2019-02-20] MEDS: LACTATED RINGER'S 1,000 ML IV SCH ×4 (03:45→23:46)
[2019-02-20] MEDS: OXYCODONE/ACETAMINOPHEN 5mg/325mg TAB PO PRN (07:03)
[2019-02-20] MEDS: DOCUSATE SODIUM 100 MG CAP PO SCH (08:11)
[2019-02-20] MEDS: GABAPENTIN 300 MG CAP PO SCH ×3 (08:11→20:23)
[2019-02-20] MEDS ORDERED: HYDROmorphone INJ 2 MG/ML SYR/VIAL ONE ×3 (09:36→11:50)
[2019-02-20] MEDS ORDERED: fentaNYL citrate 100 MCG/2 ML VIAL ONE ×5 (09:36→12:00)
[2019-02-20] MEDS ORDERED: MIDAZOLAM HCL 1 MG/ML 2ML VIAL ONE (09:36)
[2019-02-20] MEDS ORDERED: BACITRACIN INJ 50,000 UNIT VIAL ONE (09:45)
[2019-02-20] MEDS ORDERED: BUPIVACAINE/EPINEPHRINE 0.5% MPF 1:200,000 30 ML VIAL ONE (09:45)
[2019-02-20] MEDS ORDERED: HYDROmorphone INJ 1 MG/ML SYRINGE IV PRN (09:52)
[2019-02-20] MEDS ORDERED: ONDANSETRON INJ 2 MG/ML 2 ML VIAL IV PRN ×2 (09:52→13:31)
[2019-02-20] MEDS ORDERED: ATROPINE SULFATE 0.1 MG/ML 10ML SYR IV PRN (09:52)
[2019-02-20] MEDS ORDERED: PHENYLEPHRINE 100MCG/ML 5ML SYR IV PRN (09:52)
[2019-02-20] MEDS ORDERED: ePHEDrine sulfate 50 MG/ML AMP IV PRN (09:52)
[2019-02-20] MEDS ORDERED: LABETALOL HCL IV 5 MG/ML 20ML IV PRN (09:52)
[2019-02-20] MEDS ORDERED: MEPERIDINE HCL 25 MG/ML CARP IV PRN (09:52)
--- NOTE | 2019-02-20 10:23 | History & Physical Bridge Note ---
Date of Service February 20, 2019 History & Physical Bridge Note I have examined the patient, reviewed the History & Physical and in the interval since the performance of the History & Physical I have noted the following changes of clinical significance: no changes noted Revision interbody fusion L5-S1.
[2019-02-20] MEDS ORDERED: CEFAZOLIN 2000MG 2,000 MG/15 ML SYR IV ONE (10:25)
[2019-02-20] MEDS ORDERED: CEFAZOLIN 2,000 MG/15 ML IV PUSH IV ONE (10:27)
[2019-02-20] MEDS ORDERED: GENTAMICIN SULFATE 40 MG/ML 2 ML VIAL ONE (10:58)
[2019-02-20] MEDS ORDERED: VANCOMYCIN HCL 1000MG/20ML VIAL ONE (10:58)
[2019-02-20] MEDS ORDERED: DEXAMETHASONE SOD INJ 4 MG/ML VIAL ONE (11:05)
[2019-02-20] MEDS ORDERED: GLYCOPYRROLATE 0.2 MG/ML VIAL ONE (11:05)
[2019-02-20] MEDS ORDERED: METOPROLOL TARTRATE 1 MG/ML VIAL IV ONE ×2 (11:05→12:07)
[2019-02-20] MEDS ORDERED: LIDOCAINE HCL 2% 2 ML VIAL/AMP(20MG/ML) INFIL ONE (11:05)
[2019-02-20] MEDS ORDERED: PROPOFOL IV EMULSION 10 MG/ML 20 ML VIAL IV ONE ×2 (11:05→11:42)
[2019-02-20] MEDS ORDERED: ESMOLOL HCL INJ 10 MG/ML 10ML VIAL IV ONE ×2 (11:05→12:07)
[2019-02-20] MEDS ORDERED: ROCURONIUM BROMIDE 10 MG/ML 5 ML VIAL ONE (11:05)
[2019-02-20] MEDS ORDERED: NEOSTIGMINE METHYLSULFATE 1 MG/ML 10ML VIAL ONE (11:05)
[2019-02-20] MEDS ORDERED: FLOSEAL HEMOSTATIC MATRIX 10ML TOP ONE (11:48)
[2019-02-20] MEDS ORDERED: KETOROLAC 30 MG/ML VIAL ONE (11:50)
[2019-02-20] MEDS ORDERED: ONDANSETRON INJ 2 MG/ML 2 ML VIAL ONE ×2 (11:50)
--- NOTE | 2019-02-20 11:55 | Fluoroscopy Report ---
FL lumbar spine 2-3V CLINICAL HISTORY: L5, S1 REVISION COMPARISON STUDY: Lumbar spine fluoroscopic images January 28, 2019. FLUOROSCOPY TIME: 5 seconds. FLUOROSCOPIC IMAGES: 2. FINDINGS: These images demonstrate L4-L5 and L5-S1 discectomies with interbody spacer placement. Post erior decompression is noted. There are bilateral pedicle screws at the L4, L5 and S1 levels with int erconnecting rods. IMPRESSION: Fluoroscopic images demonstrating L4-L5 and L5-S1 discectomy and bilateral pedicle screw fusion. Electronically signed by: Emerson Gutiérrez M.D. 02/20/2019 11:54 AM
--- NOTE | 2019-02-20 12:02 | Operative Report ---
Post Operative Report Pre & Post Diagnosis Operation Date: 02/20/19 11:30 Pre-Op Diagnosis: Migration of Hardware Lumbar Spine Post-Op Diagnosis: Migration of Hardware Lumbar Spine Procedure Operation Date: 02/20/19 11:30 Actual Procedures #1 revision decompression L5-S1. #2 removal of interbody cage L5-S1. #3 revision interbody fusion L5-S1. #4 placement of titanium 11 x 26 mm cage at L5-S1. #5 placement osteo-amp bone graft interbody space. Surgeon Reji Mas DO Acute Care Clinical Nurse Specialist None Estimated Blood Loss 150 Findings Consistent with Post-Op Diagnosis Specimens None Indications This is a 38-year-old male the presents to my office with obvious evidence of migration of the interbody cage at L5-S1. Secondary to severe pain in the beginnings of motor deficit affecting left lower extremity would like to undergo urgent revision interbody fusion L5-S1. Description of Procedure Patient was met with identified and informed consent obtained. Patient was then taken to the operative suite underwent ablation placed in a prone position on the Ranjeet table on top of the Sriram frame. All bony prominences well-padded eyes inspected to ensure no external pressure placed upon the peer at this point the lumbar spine was prepped and draped in normal sterile fashion. Utilizing the previous incision site sharp dissection with the assistance of Bovie cautery was performed down to and exposing the instrumentation at L4-5 L5-S1 bilaterally. I then loosened the end caps at S1 levels bilaterally test the screws noted to be stable. Then identified obviously migrated cage in the left interforaminal space with significant neural compression. The cage was removed without difficulty. Inspection of the disc space demonstrated evidence of fractured endplate in the inferior aspect of L5. Then performed revision decompression L5-S1 the right including a poor complete facetectomy to decompress the nerves in the exposed the transforaminal space. A annulotomy was performed at this level. I inserted a new 11 x 26 mm osteo-amp Phillip titanium cage through a right transforaminal approach. The rods were then compressed locked in final position bilaterally. Approximately 3 cc of stimulant beads impregnated with vancomycin tobramycin were then placed within the wound. 15 round HITESH drain inserted. The incision was then closed with 1 Vicryl in the fascia 2-0 Vicryl subcutaneous and 4 Monocryl for final skin closure. Steri- Strip sterile dressings placed. Patient will continue to PACU stable condition. Please note spinal cord monitoring was utilized that the procedure no changes noted. I attest to the content of the Intraoperative Record and any orders documented therein. Any exceptions are noted below.
[2019-02-20] MEDS: fentaNYL citrate 100 MCG/2 ML VIAL IV PRN ×5 (12:19→12:30)
--- NOTE | 2019-02-20 12:53 | Anesthesiology Progress Note ---
Date of Service February 20, 2019 Anesthesia Post Procedure Vital Signs Vital Signs: Temp Pulse Pulse Resp BP Pulse Ox 02/20/19 12:40 85 12 111/86 96 02/20/19 12:30 98 H 12 112/79 97 02/20/19 12:20 99 H 12 135/80 100 02/20/19 12:11 36.9 C 95 H 12 118/85 96 02/20/19 09:49 37.1 C 116 H 18 131/84 93 02/20/19 07:53 37.2 C 02/20/19 07:43 38.2 C H 02/20/19 06:49 38.3 C H 113 H 18 114/67 92 02/20/19 06:35 105 H 02/20/19 00:01 37.7 C H 110 H 18 117/76 93 02/19/19 15:08 36.9 C 101 H 18 123/77 90 Pain Intensity Lower Medial Back: Pain Intensity: 3 Transfer of Care Handoff Completed per policy Notes Mental Status: alert / awake / arousable Patient Amnestic to Procedure: Yes Nausea / Vomiting: adequately controlled Pain: adequately controlled Airway Patency, RR, SpO2: stable & adequate BP & HR: stable & adequate Hydration State: stable & adequate Anesthetic Complications: no major complications apparent and Pt Satisfied with anesthetic care
[2019-02-20] MEDS ORDERED: METOCLOPRAMIDE HCL INJ 5 MG/ML 2 ML VIAL IV PRN (13:31)
[2019-02-20] MEDS ORDERED: ONDANSETRON 4 MG TAB PO PRN (13:31)
[2019-02-20] MEDS ORDERED: FAMOTIDINE 20 MG TAB PO PRN (13:31)
[2019-02-20] MEDS ORDERED: BISACODYL 10 MG SUPP PR PRN (13:31)
[2019-02-20] MEDS ORDERED: DO NOT ADMINISTER FLU VACCINE PRN (13:31)
[2019-02-20] MEDS ORDERED: ALUMINUM/MAGNESIUM SUSP 30 ML UDC PO PRN (13:31)
[2019-02-20] MEDS ORDERED: TRAMADOL HCL 50 MG TABLET PO PRN (13:31)
[2019-02-20] MEDS ORDERED: ACETAMINOPHEN 500 MG TAB PO PRN (13:31)
[2019-02-20] MEDS ORDERED: LORazepam 0.5 MG TAB PO PRN (13:31)
[2019-02-20] MEDS ORDERED: MAGNESIUM HYDROXIDE SUSP 30 ML UDC PO PRN (13:31)
[2019-02-20] MEDS ORDERED: PROMETHAZINE HCL 12.5 MG in SODIUM CHLORIDE 0.9% 50 ML IV PRN (13:31)
[2019-02-20] MEDS ORDERED: DO NOT ADMINISTER PNEUMOCOCCAL VACCINE PRN (13:31)
[2019-02-20] MEDS ORDERED: LORazepam 0.5 MG/1 ML VIAL IV PRN (13:31)
[2019-02-20] MEDS ORDERED: NALOXONE HCL 0.4 MG/1 ML VIAL/CARP IV PRN (13:31)
[2019-02-20] MEDS ORDERED: ACETAMINOPHEN 1,000 MG/100 ML VIAL IV PRN (13:31)
[2019-02-20] MEDS ORDERED: SOD PHOSPHATE/SOD BIPHOSPHATE ENEMA 132 ML BTL PR PRN (13:31)
[2019-02-20] MEDS: KETOROLAC 30 MG/ML VIAL IV SCH ×2 (14:43→19:18)
[2019-02-20] MEDS: OXYCODONE HCL IR 5 MG TAB (IMMEDIATE RELEASE) PO PRN ×2 (15:32→22:09)
[2019-02-20] MEDS: CEFAZOLIN 2000MG 2,000 MG/15 ML SYR IV SCH (19:09)
[2019-02-20] MEDS: DOCUSATE SODIUM/SENNA 50/8.6MG TAB PO SCH (20:23)
[2019-02-21] MEDS: HYDROmorphone INJ 0.5 MG/0.5 ML SYR IV PRN ×3 (00:25→22:24)
[2019-02-21] MEDS: CEFAZOLIN 2000MG 2,000 MG/15 ML SYR IV SCH (01:51)
[2019-02-21] MEDS: KETOROLAC 30 MG/ML VIAL IV SCH ×2 (01:51→07:33)
[2019-02-21] MEDS: POLYETHYLENE (MIRALAX) 17 GM PACK PO SCH ×3 (06:21→18:19)
--- NOTE | 2019-02-21 07:52 | Anesthesiology Progress Note ---
Date of Service February 21, 2019 Anesthesia Post Procedure Vital Signs Vital Signs: Temp Pulse Pulse Resp BP Pulse Ox 02/21/19 03:49 37.3 C 64 18 101/69 99 02/20/19 23:39 36.8 C 84 18 111/65 93 02/20/19 19:29 37.3 C 93 H 16 104/66 91 02/20/19 16:38 37.1 C 89 16 108/70 92 02/20/19 15:15 37 C 80 16 114/72 95 02/20/19 14:27 86 18 125/89 92 02/20/19 13:45 87 18 114/73 94 02/20/19 13:00 36.8 C 88 14 118/83 95 02/20/19 12:58 36.8 C 16 02/20/19 12:50 88 12 131/83 94 02/20/19 12:40 85 12 111/86 96 02/20/19 12:30 98 H 12 112/79 97 02/20/19 12:20 99 H 12 135/80 100 02/20/19 12:11 36.9 C 95 H 12 118/85 96 02/20/19 09:49 37.1 C 116 H 18 131/84 93 02/20/19 07:53 37.2 C Pain Intensity Lower Medial Back: Pain Intensity: 4 Notes Mental Status: alert / awake / arousable and participated in evaluation Nausea / Vomiting: adequately controlled Pain: adequately controlled Airway Patency, RR, SpO2: stable & adequate BP & HR: stable & adequate Hydration State: stable & adequate
[2019-02-21] MEDS: GABAPENTIN 300 MG CAP PO SCH ×3 (08:39→20:13)
--- NOTE | 2019-02-21 15:28 | Orthopedic Progress Note ---
Date of Service February 21, 2019 Assessment & Plan (1) Spinal stenosis, lumbar region with neurogenic claudication: Status post revision interbody fusion L5-S1 per plan at this time we will continue with ambulation and therapy. Hopefully discharge home this weekend. Present on Admission?: Yes Subjective Patient's leg symptoms are markedly improved. Still has some modest numbness and tingling but it is diminishing. Physical Exam Physical Exam: On exam is good strength testing appears comfortable. Results & Data Vital Signs (Past 12 Hours) Vital Signs Temp Pulse Pulse Resp BP Pulse Ox 02/21/19 14:55 37.1 C 111 H 19 136/80 93 02/21/19 11:55 37.0 C 95 H 16 108/69 93 02/21/19 07:58 37.0 C 94 H 16 146/81 H 94 02/21/19 03:49 37.3 C 64 18 101/69 99
--- NOTE | 2019-02-21 15:31 | Orthopedic Progress Note ---
Date of Service February 21, 2019 Assessment & Plan (1) Spinal stenosis, lumbar region with neurogenic claudication: Patient status post revision interbody fusion resting appropriately postop. Hopefully discharge home this weekend. Present on Admission?: Yes Subjective Patient's back pain is controlled left leg symptoms markedly improved. Physical Exam Physical Exam: Patient is good strength testing appears comfortable. Results & Data Vital Signs (Past 12 Hours) Vital Signs Temp Pulse Pulse Resp BP Pulse Ox 02/21/19 14:55 37.1 C 111 H 19 136/80 93 02/21/19 11:55 37.0 C 95 H 16 108/69 93 02/21/19 07:58 37.0 C 94 H 16 146/81 H 94 02/21/19 03:49 37.3 C 64 18 101/69 99
[2019-02-21] MEDS: OXYCODONE HCL IR 5 MG TAB (IMMEDIATE RELEASE) PO PRN (20:12)
[2019-02-21] MEDS: DOCUSATE SODIUM/SENNA 50/8.6MG TAB PO SCH (20:13)
[2019-02-22] MEDS: OXYCODONE HCL IR 5 MG TAB (IMMEDIATE RELEASE) PO PRN ×3 (00:16→10:41)
[2019-02-22] MEDS: POLYETHYLENE (MIRALAX) 17 GM PACK PO SCH ×3 (00:17→13:00)
[2019-02-22] MEDS: HYDROmorphone INJ 0.5 MG/0.5 ML SYR IV PRN (01:32)
[2019-02-22] MEDS: GABAPENTIN 300 MG CAP PO SCH (08:12)
--- NOTE | 2019-02-22 08:21 | Discharge Summary ---
Date of Service February 22, 2019 Admission HPI Per Admitting Provider This is a 38-year-old male well-known to the status post lumbar decompression and fusion L4-5 L5-S1. Unfortunately several days postop he began experiencing left leg pain. It was severe in nature. Markedly limiting controlled with medication. Imaging performed in office does demonstrate evidence of migration of the L5-S1 interbody cage posteriorly. This would account for his radiculopathy. Due to his severe pain and inability to manage it at home he was admitted to the hospital and we are planning an urgent revision procedure. Principal Diagnosis Migration of hardware with subsequent back and leg pain. Discharge Data Allergies Allergy/AdvReac Type Severity Reaction Status Date / Time No Known Allergies Allergy Verified 01/28/19 06:55 Consultations 02/18/19 14:13 Consult Anesthesiology Routine 02/20/19 13:31 Consult Case Management - Discharge Planning Routine Procedures Performed Operation Date: 02/20/19 11:30 Actual Procedures p L5-S1 Revision Decompression, Interbody Cage at L5-S1, Stimulan Beads Application, Spinal Cord Monitoring - Reji Mas DO Ordered Studies 02/20/19 11:00 FL fluoroscopy <1hr Routine FL lumbar spine 2-3V Routine Hospital Course (1) Spinal stenosis, lumbar region with neurogenic claudication: Patient was admitted from my office with severe back and leg pain. He subsequently underwent revision interbody fusion L5-S1. He tolerated this well. Leg symptoms markedly improved. HITESH drain decreasing appropriately. Subsequently discharged home. Discharge orders and instructions from the chart for further review. Total Time Total Time Spent Total Time Spent (In Minutes): 30 minutes Discharge Plan Discharge Items Patient Disposition: Home - Self-Care Reason For Visit: SEVERE BACK & LEG PAIN Discharge Diagnosis: Severe back and leg pain Activity: Per Instructions section Non-emergency contact: Primary Care Provider Call non-emergency contact if: you have any medication questions Follow-up/Referrals: Phillip Friend PA-C [Primary Care Provider] - Diet: Regular Addtl Attending Provider Instructions: ACTIVITY RECOMMENDATIONS: SELF CARE INSTRUCTIONS AFTER THORACIC/LUMBAR FUSIONS 1. You may walk to your tolerance. It is good exercise for your legs and back. Expect some back and intermittent leg aches and pains. 2. You may perform "counter-top" level activities (make a sandwich, thierry with a project, etc.). 3. No bending or lifting of more than 10 pounds or back twisting of any nature (roll like a log when turning in bed). 4. You may ride in a car for 20-30 minutes at a time. No driving until after your first visit with your doctor. 5. Frequent changes of position and restricting sitting to 30 minutes at a time will help limit the amount of back spasms and stiffness you may experience. 6. You may discontinue the use of ambulatory aids (cane, crutches, etc.) once your strength and confidence allow. 7. You may electrical and instrument engineer the shower and let water strike your incision when you arrive home at least once daily. Do not take a tub bath, sit in a hot tub or go into a swimming pool until after your first recheck in the office. SPECIAL CARE INSTRUCTIONS: VERY IMPORTANT TO READ AND REVIEW A. Your surgical incision has been closed with a cosmetic suture under the skin that will dissolve in about 6 weeks. In 14 days, you can use a pair of clean scissors and cut the suture that is left outside of the skin at the ends of your incision. 1. The small skin tapes can be removed 7 days after surgery if they have not fallen off by that point. 2. You may keep the wound open to air as much as possible to promote healing after post-op day number 5 unless told otherwise by your doctor. 3. If you think the wound looks like it is becoming infected (redness or worsening drainage) and/or you are experiencing fever, chill or worsening back pain and muscle spasms, contact the office so that we may evaluate you as soon as possible. B. Complications are uncommon, but please contact us if you have any signs or symptoms of: 1. wound infection (fever higher than 102.5 degrees F, redness, separation of wound, drainage, or increasing pain from the incision) 2. blood clots in legs (pain, swelling, redness and warmth in legs) 3. urinary tract infection (fever higher than 102.5 degrees F, burning upon urination or increased frequency of urination) 4. nerve problems (inability to walk on your toes or heels, numbness, loss of bowel or bladder control) 5. any other symptoms that concern you C. Please call the office at if you have any concerns or questions about your operation or recovery. D. No smoking! Smoking drastically decreases the chance of a solid fusion. E. Do not take any anti-inflammatory medications (Indocin, Advil, Motrin, Aspirin, Naprosyn, etc.) as these may inhibit the chance of a solid fusion. Tylenol is okay to take for pain. MANAGING PAIN AFTER SPINAL SURGERY 1. Narcotic medication is intended for short-term use and will be provided for surgical pain. Surgical pain usually lasts for a period of 4-6 weeks. Narcotic medication includes Percocet, Vicodin, Darvocet, Tylenol #3 or Lortab. 2. Longer-term pain is more appropriately treated with non-narcotic medication such as Tylenol ES. 3. Muscle spasm is not appropriately treated with narcotics. Muscle relaxers such as Soma, Flexeril or Skelaxin can be used along with Tylenol ES. 4. Remember that we all live with some "aches and pains". This is not unusual or uncommon after an injury or as we get older. a. Back pain is expected and may include muscle spasms for 4 to 6 weeks after surgery. The pain should gradually improve. If the pain worsens for no apparent reason, please contact the office. b. Intermittent leg pain may also be experienced and should not be concerned about unless it worsens for no apparent reason. If so, please contact the office. 5. We will provide appropriate medication within the normal guidelines of their prescribed use. We will also be very cautious and aware of potential abuse and extended duration of patients' medication needs. a. Pain medications are for your comfort and to assist with sleep and rest so that the tissue can heal. They are not provided in order to return to normal activity and should not be used through the day. To do so or worsening pain at night can result from ongoing tissue damage and development of tolerance to the prescribed medicine. 6. Please allow 2-3 days to process refills. Prescriptions will not be mailed but must be picked up at the office. FOLLOW UP VISIT: Keep your scheduled follow-up appointment. Any questions, please call the office at . Pending Studies at Discharge: No Stand-Alone Forms: My [employer] Medications and CA Order Prescriptions: New tramadol 50 mg Tablet 50 mg PO Q4H PRN (Reason: Pain, Moderate) Qty: 30 RF: 0 gabapentin 300 mg Capsule 300 mg PO TID Qty: 90 RF: 0 oxycodone 5 mg Tablet 5 mg PO Q4H PRN (Reason: Pain, Severe) Qty: 30 RF: 0 Continued naproxen sodium [Aleve] 220 mg Capsule 220 mg PO Q12H PRN (Reason: Pain) RF: 0 tramadol 50 mg Tablet 50 mg PO Q4H PRN (Reason: Pain, Moderate) Qty: 30 RF: 0 oxycodone 5 mg Tablet 5 mg PO Q4H PRN (Reason: Pain, Severe) Qty: 30 RF: 0 Discharge Orders: Discharge Order (Routine); Ordered 02/22/19 Ordered By: Reji Mas Admission Data Admit Date/Time: 02/18/19 13:41 Attending Provider: Reji Mas Admit Provider: Reji Mas Primary Care Provider: Phillip Friend Other Providers: Everardo Weinberg Other Interventions: Discharge Summary Assessment (RN) Last Done: 02/22/19 07:50
== END 2019-02-22 13:30 | disposition home or self-care (01) | DRG 460 ==
LOC: 3N 13:41

== ENCOUNTER 2019-02-25 11:50 | Inpatient (IN) ==
[2019-02-25] MEDS ORDERED: SODIUM CHLORIDE 0.9% 1000ML 1,000 ML IV SCH (12:15)
[2019-02-25] MEDS ORDERED: MoRPHine SULFATE 4 MG/ML 1 ML CARP\\VIAL IV STA ×2 (12:26→13:31)
--- NOTE | 2019-02-25 12:30 | XRay Report ---
XR chest 1V portable HISTORY: Shortness of breath. Chest Pain COMPARISON: Chest 01/15/2019. FINDINGS: There are low lung volumes. No pleural effusions. No pneumothorax. The heart is mildly enla rged. There are bibasilar patchy densities. No evidence for pulmonary edema. IMPRESSION: Low lung volumes with patchy bibasilar densities. This favors atelectasis. A pneumonia could also hav e a similar appearance. Electronically signed by: Bala Paulson M.D. 02/25/2019 12:29 PM
[2019-02-25 12:41] LABS: Basophils # (auto) 0.02 K/uL (0-0.2); Basophils % (auto) 0.2 %; Eosinophils # (auto) 0.18 K/uL (0-0.5); Eosinophils % (auto) 2.1 %; Hematocrit (blood only) 44.5 % (42-52); Immature Granulocytes # (auto) 0.06 K/uL (0.00-0.02); Immature Granulocytes % (auto) 0.7 %; Lymphocytes # (auto) 1.54 K/uL (1.2-3.4); Lymphocytes % (auto) 18.2 %; Mean Corpuscular Hgb Conc 33.7 g/dL (32-36); Mean Corpuscular Volume 83.2 fL (80-100); Mean Platelet Volume 9.3 fL (7.4-10.4); Monocytes # (auto) 0.94 K/uL (0.11-0.59); Monocytes % (auto) 11.1 %; Neutrophils # (auto) 5.74 K/uL (1.4-6.5); Neutrophils % (auto) 67.7 %; Platelet Count 259 K/uL (130-400); RDW Coefficient of Variation 13.4 % (11.5-14.5); RDW Standard Deviation 40.4 fL (36.4-46.3); Red Blood Count 5.35 M/uL (4.7-6.1); White Blood Count 8.48 K/uL (4.8-10.8)
[2019-02-25 12:57] LABS: Alanine Aminotransferase 43 U/L (12-78); Albumin Level 3.1 gm/dl (3.4-5.0); Aspartate Aminotransferase 14 U/L (15-37); BUN Creatinine Ratio 16.6 (10-20); Blood Urea Nitrogen 19 mg/dl (7-18); Calcium 9.5 mg/dl (8.5-10.1); Carbon Dioxide 31 mmol/L (21-32); Chloride 100 mmol/L (98-107); Creatinine Clr Calc Pharmacy 89.2 ml/min; Est GFR (African American) 92.1; Est GFR (Non-African American) 79.4; Glucose 100 mg/dl (70-99); Lipase 82 U/L (73-393); Potassium 4.1 mmol/L (3.5-5.1); Sodium 136 mmol/L (136-145)
[2019-02-25 13:02] LABS: Albumin Globulin Ratio 0.6 (0.9-2); Alkaline Phosphatase 93 U/L (45-117); Bilirubin,Total 0.8 mg/dl (0.2-1); Globulin 5.1 gm/dl (2.5-4.0); Total Protein 8.2 gm/dl (6.4-8.2); Troponin I < 0.015 ng/ml (0-0.045)
[2019-02-25] MEDS ORDERED: OPTIRAY 320 125ml IV PRN (13:30)
--- NOTE | 2019-02-25 13:56 | CT Scan Report ---
CT ANGIOGRAM OF THE CHEST CLINICAL HISTORY: Atypical chest pain and shortness of breath. Possible pulmonary embolism. COMPARISON STUDY: Chest x-ray dated 02/25/2019 TECHNIQUE: Following the IV administration of 118 mL of Optiray-320, CT angiogram of the thorax was p erformed from the thoracic inlet to the lung bases utilizing the pulmonary embolus protocol. Images a re reviewed in the axial, sagittal, and coronal planes. IV contrast was administered without complica tion. MIP imaging was performed. A dose lowering technique was utilized adhering to the principles o f ALARA. CT DOSE: 329.81 mGy.cm FINDINGS: No pathologically enlarged axillary mediastinal or hilar lymph nodes were visualized. The ascending thoracic aorta measures 32 mm. There are bilateral pulmonary artery filling defects. Thrombus burden is most pronounced within the l eft main pulmonary artery. There are bilateral pulmonary artery infarcts. There is a small right pleu ral effusion. There is equivocal mild right ventricular strain. IMPRESSION: 1. Acute pulmonary embolism with equivocal mild right ventricular strain 2. Small right pleural effusion 3. Bilateral lower lobe pulmonary infarcts Electronically signed by: Bear Ramirez M.D. 02/25/2019 1:55 PM
[2019-02-25 14:32] LABS: INR 1.2 (0.9-1.1); Partial Thromboplastin Ratio 1.1; Partial Thromboplastin Time 29.6 Seconds (21.0-31.0); Prothrombin Time 11.9 Seconds (9.0-12.0)
[2019-02-25] MEDS ORDERED: Heparin IV Standard *NO* Bolus IV ONE (14:44)
[2019-02-25] MEDS: HEPARIN SODIUM/DEXTROSE 25,000 UNITS/500 ML BAG IV SCH ×3 (15:23→20:56)
--- NOTE | 2019-02-25 16:56 | History & Physical Report ---
Date of Service February 25, 2019 Assessment & Plan (1) Pulmonary embolism: (2) Pulmonary infarct: This is a 38-year-old male no significant past medical history who presents to [facility] ED secondary to shortness of breath x 3 days. In ED pt remained hemodynamically stable but was tachycardic CBC, CMP, troponin, BNP relatively unremarkable CTA Chest: 1. Acute pulmonary embolism with equivocal mild right ventricular strain 2. Small right pleural effusion 3. Bilateral lower lobe pulmonary infarcts admit to ICU under letter carrier/Metal Bending Machine Operator Dr. May stat echocardiogram to eval for R heart strain started on IV heparin per protocol bilateral venous Doppler lower extremities ordered APAP, oxycodone for pain control please refer to letter carrier consultation for further management (3) Status post lumbar surgery: S/P Revision lumbar decompression/fusion by Dr. Mas POD #5 continue gabapentin, oxycodone surgeon Dr. Mas made aware Disposition: admit to ICU do to PE, concern for RV strain Follow up: PCP Dr. Phillip Friend upon discharge along with approp follow up with Dr. Mas Patient was seen and examined in collaboration with Dr. Reyes, please see addendum Starting 02/26/19 patient will be under the care of Dr. Angelo History of Present Illness Chief Complaint: SOB x 3 days. Primary Care Provider: Phillip Friend PA-C This is a 38-year-old male no significant past medical history who presents to [facility] ED secondary to shortness of breath x 3 days. is at bedside. Of significance patient had 2 recent spinal surgeries secondary to lumbar spinal stenosis with neurogenic claudication. On 01/28 patient underwent lumbar decompression fusion L4-L5, L5-S1 by Dr. Mas. He was discharged from hospital on 02/01. Initially tolerated procedure well but unfortunately several days postoperatively he began experiencing severe left leg pain which prompted him to be present back to Dr. Mas office. At that time he was admitted on 02/19 to undergo revision of prior procedure. On 02/20 he underwent revision of lumbar decompression fusion L5-S1 secondary to migration of hardware. He was discharged on 02/22. On the day of discharge he was doing well; however, the next day he developed dyspnea on exertion, difficulty taking deep breath, shallow breathing, pleuritic right-sided chest pain. Symptoms worsened which prompted him to be seen in the ED. He further elicits he felt similar symptoms that day prior to his lumbar revision, but thought it was just related to his surgery. He further complains of lightheaded/dizzy with ambulation, R sided flank pain with radiation to anterior R rib cage that comes and goes, stabbing in severity, worse with deep breathing, last for secs before remitting. Mildly improved with morphine in ED. He otherwise denies recent illness, f/c/s, overt chest pain, cough, hemopytsis, n/v/d, abdominal pain, dysuria, increased urg/freq with urination, hematuria, melena, hematochezia. Last Bm few days ago. Appetite has been poor. feels pt has looks very pale. Allergies Allergy/AdvReac Type Severity Reaction Status Date / Time No Known Allergies Allergy Verified 02/25/19 12:56 Home Medications Home Medications Medication Instructions Recorded Confirmed Type oxycodone 5 mg PO Q4H PRN #30 tab 01/29/19 02/25/19 Rx gabapentin 300 mg PO TID #90 cap 02/21/19 02/25/19 Rx cyclobenzaprine 10 mg PO BID PRN 02/25/19 02/25/19 History Past Med/Surg History Medical History Chronic low back pain with sciatica LLE radiculopathy with LLE neuropathy (occasional) Surgical History History of back surgery Hx of arthroscopic knee surgery LEFT Family History Father Family history of diabetes mellitus ETOHism Mother No problems noted. 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 Beliefs That Will Affect Care: None marital status: Current Living Situation: Family Other Information That Helps Us Care for You: No Feels Safe at Home: Yes Safety Concerns: Feels Safe At This Time Smoking Status: Former smoker Tobacco Type: smokeless tobacco ; Number of Years Since Quit: 2 ; Second Hand Exposure: No ; Hx Alcohol Use: Yes Alcohol type: beer Alcohol Intake Frequency: Weekly Alcohol Intake Frequency Comment: Last used in January Hx Substance Use: No Review of Systems Review of Systems: All systems reviewed & are unremarkable except as noted in HPI & below Physical Exam Physical Exam: Constitutional: WD/WN, vitals as above, NAD, sitting up in bed, pleasant, conversing easily Head: Normocephalic, Atraumatic Eyes: PERRL, conjunctivae normal, anicteric sclerae ENMT: external ear and nose normal, oropharynx normal Neck: trachea midline, no thyromegaly normal visual inspection Respiratory: normal respiratory effort, lungs clear to auscultation, no wheeze, rales, rhonchi. Normal insp/exp effort, no accessory muscle use Cardiovascular: tachycardic rate, regular rhythm, no murmur, no edema Vessels: no JVD or carotid bruit Chest: normal inspection of chest Abdomen: normal bowel sounds, soft, nontender, no hepatosplenomegaly Musculoskeletal: no cyanosis or clubbing, extremities motor strength 5/5 Skin: no rashes, warm and dry normal turgor, Neurologic: PERRL, EOMI, accommodation nl, no face palsy, no dysarthria CN's II-XI intact bilaterally and moves all extremities Psychiatric: A+Ox3, euthymic affect Lymphatic: no cervical or axillary lymphadenopathy : deferred Results & Data Vital Signs (Past 12 Hours) Vital Signs Temp Pulse Pulse Resp BP BP Pulse Ox 02/25/19 16:46 96 H 24 112/82 93 02/25/19 15:30 106 H 24 104/81 96 02/25/19 15:00 106 H 26 H 106/78 95 02/25/19 14:30 99 H 22 109/69 96 02/25/19 13:21 104 H 18 122/88 96 02/25/19 12:39 102 H 20 110/81 95 02/25/19 12:30 100 H 22 118/80 96 02/25/19 12:01 94 02/25/19 11:52 36.6 C 129 H 22 107/81 96 Laboratory Results Short CBC 02/25/19 Range/Units 12:32 WBC 8.48 (4.8-10.8) K/uL Hgb 15.0 (14.0-18.0) g/dL Hct 44.5 (42-52) % Plt Count 259 (130-400) K/uL BMP 02/25/19 12:32 Sodium 136 Potassium 4.1 Chloride 100 Carbon Dioxide 31 BUN 19 H Creatinine 1.16 Glucose 100 H Calcium 9.5 Cardiac Enzymes 02/25/19 Range/Units 12:32 Troponin I < 0.015 (0-0.045) ng/ml Liver Function 02/25/19 Range/Units 12:32 Total Bilirubin 0.8 (0.2-1) mg/dl AST 14 L (15-37) U/L ALT 43 (12-78) U/L Alkaline Phosphatase 93 (45-117) U/L Albumin 3.1 L (3.4-5.0) gm/dl Diagnostic Findings Chest CTA: IMPRESSION: 1. Acute pulmonary embolism with equivocal mild right ventricular strain 2. Small right pleural effusion 3. Bilateral lower lobe pulmonary infarcts CXR: IMPRESSION: Low lung volumes with patchy bibasilar densities. This favors atelectasis. A pneumonia could also have a similar appearance. Medications Administered Heparin Sodium/Dextrose (Heparin Sodium/Dextrose) 25,000 units in 500 mls @ 0.02 mls/hr IV .Q24H DANNY; Protocol Stop: 03/27/19 14:44 Last Admin: 02/25/19 15:23 Dose: 1,350 units/hr, 27 mls/hr Documented by: [id number] Cosigned by: [id number] Ioversol (Optiray 320 125ml) 118 ml IV ONCE PRN PRN Reason: Interaction Checking Stop: 03/01/19 13:29 Last Admin: 02/25/19 13:30 Dose: 118 ml Documented by: [id number] Discontinued Medications Heparin Sodium/Dextrose () 1 ea IV ONE ONE; Protocol Stop: 02/25/19 14:45 Last Admin: 02/25/19 15:25 Dose: 1 ea Documented by: [id number] Sodium Chloride (Nss 1000ml) 1,000 mls @ 999 mls/hr IV .Q1H1M DANNY Stop: 02/25/19 13:15 Last Infusion: 02/25/19 13:39 Dose: 0 mls/hr Documented by: [id number] Admin: 02/25/19 12:33 Dose: 999 mls/hr Documented by: [id number] Morphine Sulfate (Morphine Sulfate) 4 mg IV NOW STA Stop: 02/25/19 12:27 Last Admin: 02/25/19 12:32 Dose: 4 mg Documented by: [id number] Morphine Sulfate (Morphine Sulfate) 4 mg IV NOW STA Stop: 02/25/19 13:32 Last Admin: 02/25/19 13:49 Dose: 4 mg Documented by: [id number] ECG Rate (beats per minute): 97 Rhythm: normal sinus Code Status & VTE Plan Code Status Full Code VTE Prophylaxis Plan VTE Prophylaxis will be ordered: Yes Supervising Physician Co-Signing Physician Notes HISTORY: Record reviewed. Patient interviewed and examined. Care coordinated with Iliana Burleson PA-C; please refer to her documentation for patient's history. Briefly, 38 YO male, s/p lumbar lumbar decompression/fusion on 01/28/2019 and subsequent revision on 02/20/2019. Discharged to home on 02/22/2019. Relatively immobile for past several weeks because of his back problems. Started experiencing right-sided back/flank pain 24 to 36 hours prior to admission. Pain has worsened with severity and is worse with deep inspirations. Feels short of breath, especially with exertion. No fever, cough, hemoptysis. No pain or swelling in legs. EXAM: General- appears to be somewhat uncomfortable, but in no acute distress Lungs- bibasilar rales, no pleural friction rub appreciated, mildly tachypneic Cardiovascular- RRR; tachycardic; no murmur; no gallop; no JVD; no pretibial edema Abdomen- + bowel sounds, soft, nontender Extremities- no cyanosis; no calf tenderness Neuro- alert, oriented Skin- warm & dry DATA: Hemoglobin 15.0, white count 8480, platelet count 259,000. PT 11.9 with an INR of 1.2. PTT 29.6. Chemistry showed normal letter lites, BUN 19, creatinine 1.16, random glucose 100. Troponin less than 0.015. proBNP 8. Other lab studies as noted. Chest x-ray reviewed by the undersigned and formally interpreted by Radiology. Poor respiratory effort. Bibasilar densities, probable atelectasis. CT of chest reviewed by the undersigned and formally interpreted by Radiology' Bilateral pulmonary emboli including thrombus in the left main pulmonary artery, bilateral pulmonary infarcts, right pleural effusion, equivocal mild right ventricular strain. EKG performed at 1201 reviewed and demonstrated normal sinus rhythm at 97/minute, mild intraventricular conduction delay, no acute changes. Echo showed normal left ventricular wall motion and function, normal right ventricular size and function, normal dimensions of right atrium, trace tricuspid regurgitation, no evidence of pulmonary hypertension, no pericardial effusion. ASSESSMENT AND PLAN: Bilateral pulmonary emboli/infarctions. Provoked VTE secondary to recent back surgery and relative immobilization. CT scan raise possibility of mild right ventricular strain. However, normal BMP, normal troponin, and normal RV dimensions and systolic function on echocardiogram argue against RV strain. ED provider discussed anticoagulation with Orthopedic Surgery and patient was started on IV unfractionated warfarin. Will continue IV heparin rather than considering enoxaparin in light of recent lumbar surgery. Similarly, will opt for warfarin rather than a DOAC at this time. Will need IV heparin for at least 5 days with at least 2 days of overlap with therapeutic INR. Duration of anticoagulation to be determined. Having severe right pleuritic chest pain. Analgesics PRN. Best to avoid steroids because of lumbar surgery. Try celecoxib with food BID + PPI for gastroprotection. Right pleural effusion probably secondary to pulmonary infarct. Follow. Pulmonary Medicine and Orthopedic Surgery consulted; case discussed with them. Please refer to CAROLYN Burleson's documentation for discussion of other issues. (1) Pulmonary embolism Acute cor pulmonale presence: without acute cor pulmonale Chronicity: unspecified Pulmonary embolism type: unspecified Qualified Code(s): I26.99 - Other pulmonary embolism without acute cor pulmonale
[2019-02-25] MEDS ORDERED: OXYCODONE HCL IR 5 MG TAB (IMMEDIATE RELEASE) ONE (17:42)
[2019-02-25] MEDS ORDERED: CYCLOBENZAPRINE HCL 10 MG TAB PO PRN (17:49)
[2019-02-25] MEDS ORDERED: ICU PROTOCOL FOR HYPERGLYCEMIA PRN (17:49)
[2019-02-25] MEDS ORDERED: CELECOXIB 100 MG CAP PO ONE (18:21)
--- NOTE | 2019-02-25 18:35 | Critical Care Consultation ---
Date of Consultation February 25, 2019 Assessment & Plan (1) Pulmonary embolism: Impression: 38-year-old male status post recent back surgery admitted with acute pulmonary embolism of the left long and associated hypoxemic respiratory failure. There was initial concern about potential RV strain based on the CT findings which prompted ICU admission however there is no right ventricular st rain identified an echocardiogram of the patient's biomarkers are negative. Recommendations: 1. Acute PE status post lumbar spine surgery: The patient appears hemodynamically stable and does not have significant risk factors for decompensation. Would recommend continued heparin. If the patient remains stable after 2 to 3 days, consideration for transition to an oral anticoagulant might be appropriate if okay with spine surgery. Duration of anticoagulation given this provoked event should be at least 3 to 6 months. I would consider a limited thrombophilia evaluation at that time. Given the patient's hemodynamic stability, normal echocardiogram, and negative biomarkers, I think he is safe to transfer to the floor on telemetry. Discussed with the admitting hospitalist service 2. Hypoxemic respiratory failure: Secondary to acute PE and pleural effusion: Continue oxygen titrated to keep saturations at or above 80%. 3. Right pleural effusion: Etiology unclear. The patient's filling defects appear to be localized to the left lung but the effusion is on the right. Sympathetic effusion would be in the differential. Would follow for now. Given the indication for anticoagulation, would not recommend holding anticoagulation at the current time for possible thoracentesis unless the fluid should accumulate significantly. 4. Abnormal CT scan: The patient does have some atelectatic changes identified. Suspect these are related to splinting. Continued radiographic follow-up for resolution is recommended. The above recommendations and plan were discussed with the patient as well as with his at the bedside. Questions were answered to the best of my ability. They expressed understanding and are in agreement with plan as outlined (2) Pleural effusion: (3) Acute hypoxemic respiratory failure: (4) Abnormal CT scan of lung: History of Present Illness Attending Physician: Vasile Reyes MD History of Present Illness Asked by admitting service to evaluate patient with hypoxemic respiratory failure secondary to pulmonary embolism. History is obtained from review the electronic medical record as well as interview the patient and his at the bedside. Patient is a 38-year-old previously healthy male. He recently underwent spinal surgery x2 due to lumbar stenosis. His initial surgery was performed 820 and was a fusion of L4-S1. He was discharged 02/01. He then experienced some left pain which prompted the patient to be readmitted 02/19 for a revision. According to the patient's , he did experience some transient shortness of breath prior to undergoing his revision surgery. He was discharged from the hospital 02/22 but 24 hours after admission he experienced shortness of breath and difficulty taking a deep breath with some pleuritic right-sided chest pain. He was evaluated in the emergency room and had a CT angiogram performed which revealed a small right pleural effusion and a large left lower lobe filling d efect consistent with acute thromboembolism. There was concern about right heart strain and the patient was initially admitted to the ICU. He has had assessment of biomarkers as well as an echocardiogram. His heart rate has remained 100-110 with a normal blood pressure and he is saturating quite well on 2 L nasal cannula with oxygen saturation. Allergies Allergy/AdvReac Type Severity Reaction Status Date / Time No Known Allergies Allergy Verified 02/25/19 12:56 Home Medications Home Medications Medication Instructions Recorded Confirmed Type oxycodone 5 mg PO Q4H PRN #30 tab 01/29/19 02/25/19 Rx gabapentin 300 mg PO TID #90 cap 02/21/19 02/25/19 Rx cyclobenzaprine 10 mg PO BID PRN 02/25/19 02/25/19 History Patient History Medical History Chronic low back pain with sciatica LLE radiculopathy with LLE neuropathy (occasional) Surgical History History of back surgery Hx of arthroscopic knee surgery LEFT Family History Father Family history of diabetes mellitus ETOHism Mother No problems noted. Mother Alive and well Sister Breast cancer Sister Breast cancer Social History Preferred Language: Congolese Communication Ability: Effective Childcare Administrator Required: No Beliefs That Will Affect Care: None marital status: Current Living Situation: Family Other Information That Helps Us Care for You: No Feels Safe at Home: Yes Safety Concerns: Feels Safe At This Time Smoking Status: Former smoker Tobacco Type: smokeless tobacco ; Number of Years Since Quit: 2 ; Second Hand Exposure: No ; Hx Alcohol Use: Yes Alcohol type: beer Alcohol Intake Frequency: Weekly Alcohol Intake Frequency Comment: Last used in January Substance Use: No Review of Systems Review of Systems: See HPI Physical Exam Constitutional: WD/WN, vitals as above Neck: trachea midline, no thyromegaly Respiratory: normal respiratory effort, lungs clear to auscultation Cardiovascular: S1 and S2 present. No RV heave or tap. S2 not accentuated. No murmur Gastrointestinal (Abdomen): normal bowel sounds, soft, nontender, no hepatosplenomegaly Skin: no rashes, warm and dry Neurologic: Nonfocal exam Results & Data Vital Signs (Past 12 Hours) Vital Signs Temp Pulse Pulse Resp BP BP Pulse Ox 02/25/19 18:10 101 H 27 H 96 02/25/19 18:00 107 H 19 127/80 96 02/25/19 17:31 37.1 C 97 H 27 H 102/74 95 02/25/19 16:46 96 H 24 112/82 93 02/25/19 15:30 106 H 24 104/81 96 02/25/19 15:00 106 H 26 H 106/78 95 02/25/19 14:30 99 H 22 109/69 96 02/25/19 13:21 104 H 18 122/88 96 02/25/19 12:39 102 H 20 110/81 95 02/25/19 12:30 100 H 22 118/80 96 02/25/19 12:01 94 02/25/19 11:52 36.6 C 129 H 22 107/81 96 Laboratory Results 02/25/19 12:32 02/25/19 12:32 Troponin and BNP negative Diagnostic Findings CT angiogram independently reviewed. There is a large filling defect within the left lower lobe pulmonary artery. Right pleural effusion is also noted but no filling defects identified on the right side. There are some atelectatic changes throughout both lung kennedy. Echocardiogram from today demonstrated preserved ejection fraction. Right ventricle was normal in size thickness and function. No evidence of pulmonary hypertension. PG Care Time/CCT Total # of Minutes Spent Total Time Spent with Patient: Total time spent is greater than 50% in coordination of care (as documented) at patient's floor/unit and/or counseling patient: (1) Pulmonary embolism Acute cor pulmonale presence: without acute cor pulmonale Chronicity: unspecified Pulmonary embolism type: unspecified Qualified Code(s): I26.99 - Other pulmonary embolism without acute cor pulmonale
[2019-02-25] MEDS: HYDROmorphone INJ 1 MG/ML SYRINGE IV PRN (18:41)
--- NOTE | 2019-02-25 19:12 | Ultrasound Report ---
US venous doppler LE BI HISTORY: Pain. Edema. can be done at bedside in ICU COMPARISON STUDY: None. FINDINGS: There is normal compressibility, flow, and augmentation within the bilateral lower extremit y deep venous systems. IMPRESSION: No DVT within the right or left lower extremity. The above report was generated using voice recognition software. It may contain grammatical, syntax or spelling errors. Electronically signed by: Raheem Campos M.D. 02/25/2019 7:11 PM
--- NOTE | 2019-02-25 19:20 | Emergency Department Note ---
Entered by Loree Andrews acting as a scribe for Nadir Sosa MD History of Present Illness General Chief complaint: Shortness of Breath/Dyspnea Stated complaint: CAN'T FULLY BREATHE Time Seen by Provider: 02/25/19 12:00 Source: patient Mode of arrival: ambulatory History of Present Illness Provider complaint: shortness of breath Onset (ago): day(s) 2 Location: chest Pain Consistency: + other (worsening ) Maximum Pain Intensity: 9 Exacerbated By: + movement Associated symptoms: + denies other symptoms (abdominal pain, urinary symptoms, or bowel abnormalities), + shortness of breath and + other ("spasms" when trying to breathe ); no chest pain The patient is a 38 year old male with a PMHX of chronic low back pain with sciatica and back surgery, who presents to the ED with complaints of worsening shortness of breath that began 2 days ago. The patient states that he persistently feels like he cant "fully breathe in." He states that he has no chest pain. The patient states that the shortness of breath is exacerbated when he tries to sit up or ambulate. The patients caregiver states that the patient has breathing spasms. The patient states that 3 days ago he was discharged from a recent back surgery with Dr. Mas, Orthopedic Surgery. The patient states that his back feels good and he is in no major pain since his surgery. He denies abdominal pain, urinary symptoms, or bowel abnormalities. The patient denies a history of heart disease or any recent travel. The patient states that he is an occasional drinker and quit using tobacco about 2 years ago. Medical records reviewed and showed that the patient had a lumbar decompression and infusion of L4-S1 on 02/20/[address] Mas, Orthopedic Surgeon. The [facility] chart states that the patient was referred to the ED by Dr. Mas. Home Medications Home Medications Medication Instructions Recorded Confirmed Type oxycodone 5 mg PO Q4H PRN #30 tab 01/29/19 02/25/19 Rx gabapentin 300 mg PO TID #90 cap 02/21/19 02/25/19 Rx cyclobenzaprine 10 mg PO BID PRN 02/25/19 02/25/19 History Allergies Allergy/AdvReac Type Severity Reaction Status Date / Time No Known Allergies Allergy Verified 02/25/19 12:56 Past Med/Surg History Medical History Chronic low back pain with sciatica LLE radiculopathy with LLE neuropathy (occasional) Surgical History History of back surgery Hx of arthroscopic knee surgery LEFT Family History Father Family history of diabetes mellitus ETOHism Mother No problems noted. Mother Alive and well Sister Breast cancer Sister Breast cancer Social History Preferred Language: Romansh Communication Ability: Effective Medical Research Tech Required: No Beliefs That Will Affect Care: None marital status: Current Living Situation: Family Other Information That Helps Us Care for You: No Feels Safe at Home: Yes Safety Concerns: Feels Safe At This Time Smoking Status: Former smoker Tobacco Type: smokeless tobacco ; Number of Years Since Quit: 2 ; Second Hand Exposure: No ; Hx Alcohol Use: Yes Alcohol type: beer Alcohol Intake Frequency: Weekly Alcohol Intake Frequency Comment: Last used in January Hx Substance Use: No Review of Systems See HPI for pertinent positives & negatives. and A total of 10 systems reviewed and were otherwise negative Physical Exam Vital Signs Vital Signs - 24 hr 02/25/19 11:52 02/25/19 12:01 02/25/19 12:09 Temperature 36.6 C Temperature Source Oral Sepsis Recent Fever Within 48 Hours No Sepsis New/Unexplained Change in Mental Status No Sepsis Action Taken by Nursing No Action Required Pulse Rate 129 H Pulse Rate [Right Finger] Pulse Rhythm Regular Pulse Strength Normal Respiratory Rate 22 Respiratory Effort / Characteristics Non-Labored Spontaneous Non-Labored Respiratory Depth Normal Respiratory Pattern Regular Regular Blood Pressure 107/81 Blood Pressure [Right Arm] Blood Pressure Mean 89 Blood Pressure Mean [Right Arm] Blood Pressure Position Sitting Pulse Oximetry 96 94 Oxygen Delivery Method Room Air Room Air Room Air Oxygen Flow Rate 02/25/19 12:30 02/25/19 12:39 02/25/19 13:21 Temperature Temperature Source Sepsis Recent Fever Within 48 Hours Sepsis New/Unexplained Change in Mental Status Sepsis Action Taken by Nursing Pulse Rate Pulse Rate [Right Finger] 100 H 102 H 104 H Pulse Rhythm Pulse Strength Respiratory Rate 22 20 18 Respiratory Effort / Characteristics Non-Labored Non-Labored Non-Labored Respiratory Depth Normal Normal Normal Respiratory Pattern Blood Pressure Blood Pressure [Right Arm] 118/80 110/81 122/88 Blood Pressure Mean Blood Pressure Mean [Right Arm] 92 90 99 Blood Pressure Position Pulse Oximetry 96 95 96 Oxygen Delivery Method Room Air Room Air Room Air Oxygen Flow Rate 02/25/19 14:30 02/25/19 14:36 02/25/19 15:00 Temperature Temperature Source Sepsis Recent Fever Within 48 Hours Sepsis New/Unexplained Change in Mental Status Sepsis Action Taken by Nursing Pulse Rate Pulse Rate [Right Finger] 99 H 106 H Pulse Rhythm Pulse Strength Respiratory Rate 22 26 H Respiratory Effort / Characteristics Non-Labored Spontaneous Short of Breath SOB on Exertion Non-Labored Respiratory Depth Normal Shallow Normal Respiratory Pattern Regular Blood Pressure Blood Pressure [Right Arm] 109/69 106/78 Blood Pressure Mean Blood Pressure Mean [Right Arm] 82 87 Blood Pressure Position Pulse Oximetry 96 95 Oxygen Delivery Method Nasal Cannula Nasal Cannula Nasal Cannula Oxygen Flow Rate 2 2 2 02/25/19 15:30 Temperature Temperature Source Sepsis Recent Fever Within 48 Hours Sepsis New/Unexplained Change in Mental Status Sepsis Action Taken by Nursing Pulse Rate Pulse Rate [Right Finger] 106 H Pulse Rhythm Pulse Strength Respiratory Rate 24 Respiratory Effort / Characteristics Non-Labored Respiratory Depth Normal Respiratory Pattern Blood Pressure Blood Pressure [Right Arm] 104/81 Blood Pressure Mean Blood Pressure Mean [Right Arm] 88 Blood Pressure Position Pulse Oximetry 96 Oxygen Delivery Method Nasal Cannula Oxygen Flow Rate 2 GENERAL: Well nourished, non-toxic. EYE EXAM: Normal conjunctiva. PERRL, no anisocoria and EOM's grossly intact w/o pain. OROPHARYNX: Moist mucous membranes. Grossly normal dentition. NECK: Supple, no nuchal rigidity, no adenopathy, non-tender. No signs of meningismus. LUNGS: Clear to auscultation. Normal chest wall mechanics. HEART: NSR, no MRG. ABDOMEN: Abdomen soft, non-tender, normo-active bowel sounds, no masses, no rebound or guarding. BACK: No CVA TTP. Well healing incision over the lower back about 8 cm, no active drainage or bleeding. SKIN: No rashes and no bruising. UPPER EXTREMITIES: Upper extremities are grossly normal. LOWER EXTREMITIES: No pitting edema. No calf pain. Negative modesto sign bilaterally. NEURO EXAM: A&O x3, cranial nerves II-XII grossly intact, normal speech, moves all 4 extremities on command w/o issue. No saddle anesthesia. Course 1215: Past medical records reviewed. The patient was evaluated in room C11B. A complete history and physical exam was performed. 1400: I reevaluated the patient at this time and he stated that he is feeling better. I discussed the test results and treatment plan with the patient. He verbally agreed and understood. 1433: I discussed the patient's case with Dr. Mas, Orthopedic Surgeon. He stated that the patient would be fine is he took Heparin. 1444: I discussed the patient's case with Stephanie Jimenez PA-C. She informed me that Dr. Reyes, [facility] Hospitalist, agreed to evaluate the patient for further management. Consultations Consultation #1: I discussed the patient's case with Dr. Mas, Orthopedic Surgeon. He stated that the patient would be fine is he took Heparin. Time: 14:33 Consultation #2: I discussed the patient's case with Stephanie Jimenez PA-C. She i nformed me that Dr. Reyes, [facility] Hospitalist, agreed to evaluate the patient for further management. Time: 14:44 Administered Medications Hydromorphone HCl (Dilaudid) 1 mg IV Q2H PRN PRN Reason: Severe Pain Stop: 03/11/19 18:19 Last Admin: 02/25/19 18:41 Dose: 1 mg Documented by: [id number] Heparin Sodium/Dextrose (Heparin Sodium/Dextrose) 25,000 units in 500 mls @ 0.02 mls/hr IV .Q24H DANNY; Protocol Stop: 03/27/19 14:44 Last Admin: 02/25/19 17:56 Dose: 1,350 units/hr, 27 mls/hr Documented by: [id number] Cosigned by: [id number] Titration: 02/25/19 17:56 Dose: 1,350 units/hr, 27 mls/hr Documented by: [id number] Cosigned by: [id number] Admin: 02/25/19 15:23 Dose: 1,350 units/hr, 27 mls/hr Documented by: [id number] Cosigned by: [id number] Ioversol (Optiray 320 125ml) 118 ml IV ONCE PRN PRN Reason: Interaction Checking Stop: 03/01/19 13:29 Last Admin: 02/25/19 13:30 Dose: 118 ml Documented by: [id number] Discontinued Medications Heparin Sodium/Dextrose () 1 ea IV ONE ONE; Protocol Stop: 02/25/19 14:45 Last Admin: 02/25/19 15:25 Dose: 1 ea Documented by: [id number] Sodium Chloride (Nss 1000ml) 1,000 mls @ 999 mls/hr IV .Q1H1M DANNY Stop: 02/25/19 13:15 Last Infusion: 02/25/19 13:39 Dose: 0 mls/hr Documented by: [id number] Admin: 02/25/19 12:33 Dose: 999 mls/hr Documented by: [id number] Morphine Sulfate (Morphine Sulfate) 4 mg IV NOW STA Stop: 02/25/19 12:27 Last Admin: 02/25/19 12:32 Dose: 4 mg Documented by: [id number] Morphine Sulfate (Morphine Sulfate) 4 mg IV NOW STA Stop: 02/25/19 13:32 Last Admin: 02/25/19 13:49 Dose: 4 mg Documented by: [id number] Oxycodone HCl (Roxicodone Immediate Rel) Confirm Administered Dose 5 mg .ROUTE .STK-MED ONE Stop: 02/25/19 17:43 Last Admin: 02/25/19 17:54 Dose: 5 mg Documented by: [id number] Medical Decision Making Differential Diagnosis Differential diagnosis: Etiologies such as infections, reactive airway disease, COPD, pneumonia, pleural effusion, pulmonary edema, ARDS, pneumothorax, CHF, cardiac ischemia, cardiac tamponade, dysrhythmia, anemia, pulmonary embolism, musculoskeletal, gastrointestinal process, as well as others were entertained. Medical Records Attestation: I reviewed the patient's medical records. Home Medications Current Medication List: was personally reviewed by sd Laboratory Data Attestation: I reviewed the patient's lab results. Result diagrams: 02/25/19 12:32 02/25/19 12:32 Lab Results 02/25/19 02/25/19 02/25/19 Range/Units 12:32 12:32 12:32 WBC 8.48 (4.8-10.8) K/uL RBC 5.35 (4.7-6.1) M/uL Hgb 15.0 (14.0-18.0) g/dL Hct 44.5 (42-52) % MCV 83.2 (80-100) fL MCH 28.0 (25-34) pg MCHC 33.7 (32-36) g/dL RDW Std Deviation 40.4 (36.4-46.3) fL RDW Coeff of [place] 13.4 (11.5-14.5) % Plt Count 259 (130-400) K/uL MPV 9.3 (7.4-10.4) fL Immature Gran % (Auto) 0.7 % Neut % (Auto) 67.7 % Lymph % (Auto) 18.2 % [place] % (Auto) 11.1 % Eos % (Auto) 2.1 % Baso % (Auto) 0.2 % Immature Gran # (Auto) 0.06 H (0.00-0.02) K/uL Neut # (Auto) 5.74 (1.4-6.5) K/uL Lymph # (Auto) 1.54 (1.2-3.4) K/uL [place] # (Auto) 0.94 H (0.11-0.59) K/uL Eos # (Auto) 0.18 (0-0.5) K/uL Baso # (Auto) 0.02 (0-0.2) K/uL PT (9.0-12.0) Seconds INR (0.9-1.1) APTT (21.0-31.0) Seconds PTT Ratio Sodium 136 (136-145) mmol/L Potassium 4.1 (3.5-5.1) mmol/L Chloride 100 (98-107) mmol/L Carbon Dioxide 31 (21-32) mmol/L Anion Gap 5.0 (3-11) BUN 19 H (7-18) mg/dl Creatinine 1.16 (0.6-1.4) mg/dl Est Cr Clr Drug Dosing 89.2 ml/min Est GFR ( Amer) 92.1 Est GFR (Non-Af Amer) 79.4 BUN/Creatinine Ratio 16.6 (10-20) Glucose 100 H (70-99) mg/dl Calcium 9.5 (8.5-10.1) mg/dl Total Bilirubin 0.8 (0.2-1) mg/dl AST 14 L (15-37) U/L ALT 43 (12-78) U/L Alkaline Phosphatase 93 (45-117) U/L Troponin I < 0.015 (0-0.045) ng/ml NT-Pro-B Natriuret Pep 8 (0-450) pg/ml Total Protein 8.2 (6.4-8.2) gm/dl Albumin 3.1 L (3.4-5.0) gm/dl Globulin 5.1 H (2.5-4.0) gm/dl Albumin/Globulin Ratio 0.6 L (0.9-2) Lipase 82 (73-393) U/L 02/25/19 Range/Units 12:33 WBC (4.8-10.8) K/uL RBC (4.7-6.1) M/uL Hgb (14.0-18.0) g/dL Hct (42-52) % MCV (80-100) fL MCH (25-34) pg MCHC (32-36) g/dL RDW Std Deviation (36.4-46.3) fL RDW Coeff of [place] (11.5-14.5) % Plt Count (130-400) K/uL MPV (7.4-10.4) fL Immature Gran % (Auto) % Neut % (Auto) % Lymph % (Auto) % [place] % (Auto) % Eos % (Auto) % Baso % (Auto) % Immature Gran # (Auto) (0.00-0.02) K/uL Neut # (Auto) (1.4-6.5) K/uL Lymph # (Auto) (1.2-3.4) K/uL [place] # (Auto) (0.11-0.59) K/uL Eos # (Auto) (0-0.5) K/uL Baso # (Auto) (0-0.2) K/uL PT 11.9 (9.0-12.0) Seconds INR 1.2 H (0.9-1.1) APTT 29.6 (21.0-31.0) Seconds PTT Ratio 1.1 Sodium (136-145) mmol/L Potassium (3.5-5.1) mmol/L Chloride (98-107) mmol/L Carbon Dioxide (21-32) mmol/L Anion Gap (3-11) BUN (7-18) mg/dl Creatinine (0.6-1.4) mg/dl Est Cr Clr Drug Dosing ml/min Est GFR ( Amer) Est GFR (Non-Af Amer) BUN/Creatinine Ratio (10-20) Glucose (70-99) mg/dl Calcium (8.5-10.1) mg/dl Total Bilirubin (0.2-1) mg/dl AST (15-37) U/L ALT (12-78) U/L Alkaline Phosphatase (45-117) U/L Troponin I (0-0.045) ng/ml NT-Pro-B Natriuret Pep (0-450) pg/ml Total Protein (6.4-8.2) gm/dl Albumin (3.4-5.0) gm/dl Globulin (2.5-4.0) gm/dl Albumin/Globulin Ratio (0.9-2) Lipase (73-393) U/L Imaging Data Radiologist's Impression: Radiology results as stated below per my review and the radiologist's interpretation: XR chest 1V portable HISTORY: Shortness of breath. Chest Pain COMPARISON: Chest 01/15/2019. FINDINGS: There are low lung volumes. No pleural effusions. No pneumothorax. The heart is mildly enlarged. There are bibasilar patchy densities. No evidence for pulmonary edema. IMPRESSION: Low lung volumes with patchy bibasilar densities. This favors atelectasis. A pneumonia could also have a similar appearance. Electronically signed by: Bala Paulson M.D. 02/25/2019 12:[address] ANGIOGRAM OF THE CHEST CLINICAL HISTORY: Atypical chest pain and shortness of breath. Possible pulmonary embolism. COMPARISON STUDY: Chest x-ray dated 02/25/2019 TECHNIQUE: Following the IV administration of 118 mL of Optiray-320, CT angiogram of the thorax was performed from the thoracic inlet to the lung bases utilizing the pulmonary embolus protocol. Images are reviewed in the axial, s agittal, and coronal planes. IV contrast was administered without complication. MIP imaging was performed. A dose lowering technique was utilized adhering to the principles of ALARA. CT DOSE: 329.81 mGy.cm FINDINGS: No pathologically enlarged axillary mediastinal or hilar lymph nodes were visua lized. The ascending thoracic aorta measures 32 mm. There are bilateral pulmonary artery filling defects. Thrombus burden is most pronounced within the left main pulmonary artery. There are bilateral pulmonary artery infarcts. There is a small right pleural effusion. There is equivocal mild right ventricular strain. IMPRESSION: 1. Acute pulmonary embolism with equivocal mild right ventricular strain 2. Small right pleural effusion 3. Bilateral lower lobe pulmonary infarcts Electronically signed by: Bear Ramirez M.D. 02/25/2019 1:55 PM ECG Data Attestation: I personally reviewed and interpreted this ECG as follows: Indication: SOB/dyspnea Rate (beats per minute): 97 Rhythm: normal sinus Findings: + other (normal intervals, normal axis); no ST depression, no T-wave inversion, no ST elevation and no acute ischemic change Blood Pressure Blood Pressure Findings: Normal blood pressure Blood Pressure Disposition: did not require urgent referral MDM Narrative Patient was seen and evaluated the bedside. The patient did present as a referral due to concern for shortness of breath. The patient is recently postop from a lumbar fusion. The patient does complain of pleuritic pain apparently shortness of breath. The patient does not complain of any leg pain or lower extremity swelling or cough or fever. Patient's blood work is fairly unremarkable. The patient's CT does show bilateral PEs and pulmonary infarcts. I discussed the patient's case with the Dr. Mas who is the patient's primary surgeon who stated the patient was ordered heparin. There was report of right- sided heart strain based on the CT but the troponin is negative. EKG does not show obvious right-sided heart strain. I did speak with the on-call hospitalist who agreed to further evaluate treat the patient. Patient was admitted to the medicine service and they did state that they would discuss the case with the on-call mergers and acquisitions attorney for possible care within the ICU for monitoring. Impression & Plan Pulmonary embolism, Pulmonary infarct, SOB (shortness of breath) Critical Care Time Critical Care Time: Yes Total Critical Care Time: 57 I have personally spent greater than 57 minutes of critical care time in direct management of this patient. This includes bedside care, interpretation of diagnostic studies, and testing, discussion with consultants, patient, and family members, and other require inpatient management activities. This 57 minutes is in excess of all separately billable procedures. Discharge Plan Visit Data *Final* Discharge Date/Time: 02/25/19 17:01 Chief Complaint: Shortness of Breath/Dyspnea Stated Complaint: CAN'T FULLY BREATHE ED Provider: Nadir Sosa Discharge Problem: Pulmonary embolism, Pulmonary infarct, SOB (shortness of breath) Patient Disposition: Admitted As Inpatient Discharge Instructions Interventions: ED Discharge Assessment Last Done: 02/25/19 17:01 Discharge Problem: Pulmonary embolism Qualifiers: Pulmonary embolism type: unspecified Chronicity: unspecified Acute cor pulm onale presence: without acute cor pulmonale Qualified Code(s): I26.99 - Other pulmonary embolism without acute cor pulmonale The scribe's documentation has been prepared under my direction and personally reviewed by me in its entirety. I confirm that the note above accurately reflects all work, treatment, procedures, and medical decision making performed by me.
[2019-02-25] MEDS ORDERED: HYDROmorphone HCL 0.5MG/ML 50 ML CASSETTE IV PRN (19:49)
[2019-02-25] MEDS ORDERED: NALOXONE HCL 0.4 MG/1 ML VIAL/CARP IV PRN (19:49)
[2019-02-25] MEDS: Heparin IV Standard *NO* Bolus IV SCH ×3 (20:11→21:49)
[2019-02-25] MEDS: GABAPENTIN 300 MG CAP PO SCH (20:57)
[2019-02-25] MEDS: SODIUM CHLORIDE 0.9% 1000ML 1,000 ML IV SCH (20:58)
[2019-02-25] MEDS: PANTOprazole 40 MG TAB PO SCH (21:00)
[2019-02-25 21:49] LABS: Partial Thromboplastin Ratio 1.3; Partial Thromboplastin Time 35.9 Seconds (21.0-31.0)
[2019-02-25] MEDS ORDERED: HEPARIN IV BOLUS 6,000 UNITS in SYRINGE 0 ML IV ONE (22:15)
[2019-02-26 04:08] LABS: Basophils # (auto) 0.02 K/uL (0-0.2); Basophils % (auto) 0.2 %; Eosinophils # (auto) 0.26 K/uL (0-0.5); Eosinophils % (auto) 2.8 %; Hematocrit (blood only) 39.9 % (42-52); Hemoglobin 13.1 g/dL (14.0-18.0); Immature Granulocytes # (auto) 0.06 K/uL (0.00-0.02); Immature Granulocytes % (auto) 0.6 %; Lymphocytes # (auto) 2.96 K/uL (1.2-3.4); Lymphocytes % (auto) 31.9 %; Mean Corpuscular Hemoglobin 27.3 pg (25-34); Mean Corpuscular Hgb Conc 32.8 g/dL (32-36); Mean Corpuscular Volume 83.3 fL (80-100); Mean Platelet Volume 9.1 fL (7.4-10.4); Monocytes # (auto) 0.87 K/uL (0.11-0.59); Monocytes % (auto) 9.4 %; Neutrophils # (auto) 5.12 K/uL (1.4-6.5); Neutrophils % (auto) 55.1 %; Platelet Count 261 K/uL (130-400); RDW Coefficient of Variation 13.4 % (11.5-14.5); RDW Standard Deviation 40.3 fL (36.4-46.3); Red Blood Count 4.79 M/uL (4.7-6.1); White Blood Count 9.29 K/uL (4.8-10.8)
[2019-02-26 04:27] LABS: INR 1.2 (0.9-1.1); Partial Thromboplastin Ratio 2.6; Prothrombin Time 12.1 Seconds (9.0-12.0)
[2019-02-26 04:28] LABS: BUN Creatinine Ratio 20.6 (10-20); Calcium 8.7 mg/dl (8.5-10.1); Creatinine Clr Calc Pharmacy 93.2 ml/min; Est GFR (African American) 97.1; Est GFR (Non-African American) 83.8; Magnesium 2.2 mg/dl (1.8-2.4); Potassium 4.1 mmol/L (3.5-5.1)
[2019-02-26 04:40] LABS: Partial Thromboplastin Time 69.9 Seconds (21.0-31.0)
[2019-02-26] MEDS: HEPARIN SODIUM/DEXTROSE 25,000 UNITS/500 ML BAG IV SCH ×2 (06:25→20:37)
[2019-02-26] MEDS: PANTOprazole 40 MG TAB PO SCH ×2 (08:30→20:35)
[2019-02-26] MEDS: CELECOXIB 100 MG CAP PO SCH ×2 (08:30→17:21)
[2019-02-26] MEDS: GABAPENTIN 300 MG CAP PO SCH ×3 (08:30→20:35)
[2019-02-26] MEDS: OXYCODONE HCL IR 5 MG TAB (IMMEDIATE RELEASE) PO PRN ×2 (08:33→15:31)
[2019-02-26 11:31] LABS: Partial Thromboplastin Ratio 1.8
[2019-02-26 11:40] LABS: Partial Thromboplastin Time 48.1 Seconds (21.0-31.0)
--- NOTE | 2019-02-26 11:47 | Hospitalist Progress Note ---
Date of Service February 26, 2019 Assessment & Plan (1) Pulmonary embolism: Provoked 38 YO male, s/p lumbar lumbar decompression/fusion on 01/28/2019 and subsequent revision on 02/20/2019. Discharged to home on 02/22/2019. Likely duration 3 to 6 months We will discuss with Dr. Bush Present on Admission?: Yes (2) Pulmonary infarct: Secondary to pulmonary embolism as above CTA Chest: 1. Acute pulmonary embolism with equivocal mild right ventricular strain 2. Small right pleural effusion 3. Bilateral lower lobe pulmonary infarcts Appreciate senior it security analyst input and recommendation Echo did not show any RV strain Started on IV heparin per protocol and Coumadin; likely to continue Coumadin Bilateral venous Doppler lower extremities ordered-negative for DVT APAP, oxycodone for pain control Clinically a little bit better (3) Status post lumbar surgery: S/P Revision lumbar decompression/fusion by Dr. Mas POD #5 continue gabapentin, oxycodone surgeon Dr. Mas made aware Appreciate input and recommendation Follow up: PCP Dr. Phillip Friend upon discharge along with approp follow up with Dr. Mas Subjective 02/26 The patient was seen and examined in telemetry unit Still complains of some pain left lower chest wall with deep breathing Denies any shortness of breath with No nausea no vomiting no abdominal pain Review of Systems Review of Systems: All systems reviewed and are unremarkable except as noted below Respiratory: + cough, + pain on inspiration and + pain with cough Cardiovascular: no chest pain Physical Exam Physical Exam: Lying in bed without any discomfort Constitutional: WD/WN, vitals as above Eyes: PERRL, conjunctivae normal, anicteric sclerae ENMT: external ear and nose normal, oropharynx normal Neck: trachea midline, no thyromegaly Respiratory: normal respiratory effort and + cough; no respiratory distress Cardiovascular: Rate/Rhythm: regular rate and regular rhythm Heart Sounds: no murmur Gastrointestinal (Abdomen): normal bowel sounds, soft, nontender, no hepatosplenomegaly Skin: no rashes, warm and dry Neurologic: moves all extremities; no focal motor deficits Lymphatic: no cervical or axillary lymphadenopathy Results & Data Vital Signs (Past 12 Hours) Vital Signs Temp Pulse Resp BP Pulse Ox 02/26/19 11:05 36.8 C 116 H 18 100/70 95 02/26/19 08:02 37.4 C 113 H 19 126/75 91 02/26/19 04:09 37.0 C 78 16 97/74 L 93 02/25/19 23:59 36.7 C 99 H 17 97/67 L 92 Laboratory Results Short CBC 02/25/19 02/26/19 Range/Units 12:32 03:46 WBC 8.48 9.29 (4.8-10.8) K/uL Hgb 15.0 13.1 L (14.0-18.0) g/dL Hct 44.5 39.9 L (42-52) % Plt Count 259 261 (130-400) K/uL BMP 02/25/19 02/26/19 12:32 03:46 Sodium 136 134 L Potassium 4.1 4.1 Chloride 100 99 Carbon Dioxide 31 30 BUN 19 H 23 H Creatinine 1.16 1.11 Glucose 100 H 98 Calcium 9.5 8.7 Cardiac Enzymes 02/25/19 Range/Units 12:32 Troponin I < 0.015 (0-0.045) ng/ml Liver Function 02/25/19 Range/Units 12:32 Total Bilirubin 0.8 (0.2-1) mg/dl AST 14 L (15-37) U/L ALT 43 (12-78) U/L Alkaline Phosphatase 93 (45-117) U/L Albumin 3.1 L (3.4-5.0) gm/dl Medications Administered Current Inpatient Medications Acetaminophen (Tylenol) 650 mg PO Q4H PRN PRN Reason: Mild Pain Stop: 03/27/19 17:48 Celecoxib (Celebrex) 100 mg PO BIDM [facility] Stop: 03/28/19 07:59 Last Admin: 02/26/19 08:30 Dose: 100 mg Documented by: Cyclobenzaprine HCl (Flexeril) 10 mg PO BID PRN PRN Reason: Pain Stop: 03/27/19 17:48 Gabapentin (Neurontin) 300 mg PO TID DANNY Stop: 03/27/19 20:59 Last Admin: 02/26/19 08:30 Dose: 300 mg Documented by: Hydromorphone HCl (Dilaudid) 1 mg IV Q2H PRN PRN Reason: Severe Pain Stop: 03/11/19 18:19 Last Admin: 02/25/19 18:41 Dose: 1 mg Documented by: Hydromorphone HCl (Dilaudid [place] Weigher 25 Mg/50 Ml) 25 mg IV PRN PRN; Protocol PRN Reason: Pain Stop: 03/11/19 19:48 Last Admin: 02/25/19 20:58 Dose: 25 mg Documented by: Heparin Sodium/Dextrose (Heparin Sodium/Dextrose) 25,000 units in 500 mls @ 31 mls/hr IV .Q16H8M DANNY; Protocol Stop: 03/27/19 19:37 Last Titration: 02/26/19 07:18 Dose: 1,550 units/hr, 31 mls/hr Documented by: Sodium Chloride (Nss 1000ml) 1,000 mls @ 15 mls/hr IV .Q24H [facility] Stop: 03/11/19 19:49 Last Admin: 02/25/19 20:58 Dose: 15 mls/hr Documented by: Ioversol (Optiray 320 125ml) 118 ml IV ONCE PRN PRN Reason: Interaction Checking Stop: 03/01/19 13:29 Last Admin: 02/25/19 13:30 Dose: 118 ml Documented by: Naloxone HCl (Narcan) 0.1 mg IV Q5M PRN; Protocol PRN Reason: Oversedation/Resp Depression Stop: 03/11/19 19:48 Oxycodone HCl (Roxicodone Immediate Rel) 5 mg PO Q4H PRN PRN Reason: Pain, Severe Stop: 03/11/19 17:48 Last Admin: 02/26/19 08:33 Dose: 5 mg Documented by: Pantoprazole Sodium (Protonix) 40 mg PO BID [facility] Stop: 03/01/19 09:01 Last Admin: 02/26/19 08:30 Dose: 40 mg Documented by: Warfarin Sodium (Coumadin) 7.5 mg PO DAILY@1600 ONE Stop: 02/26/19 16:01 (1) Pulmonary embolism Acute cor pulmonale presence: without acute cor pulmonale Chronicity: unspecified Pulmonary embolism type: unspecified Qualified Code(s): I26.99 - Other pulmonary embolism without acute cor pulmonale
--- NOTE | 2019-02-26 13:39 | Orthopedic Consultation ---
Date of Consultation February 26, 2019 Assessment & Plan (1) Acute hypoxemic respiratory failure: This time he may begin activity when okay per medicines. He seems to be tolerating anticoagulation well now 6 days postop. Present on Admission?: Yes History of Present Illness Reason for Consultation: Status post lumbar surgery. Attending Physician: Flori Angelo MD History of Present Illness This is a 38-year-old male well-known to me status post revision lumbar decomp ression and fusion. Spoke with him yesterday and is complaining of some chest pain shortness of breath. I instructed the patient to go the emergency room to rule out pulmonary embolism. Unfortunately this is exactly what the patient is struggling with. He states that his back pain is well controlled he has no leg pain at this time. During our discussion he still notes significant shortness of breath with deep inspiration and activity. Allergies Allergy/AdvReac Type Severity Reaction Status Date / Time No Known Allergies Allergy Verified 02/25/19 12:56 Home Medications Home Medications Medication Instructions Recorded Confirmed Type oxycodone 5 mg PO Q4H PRN #30 tab 01/29/19 02/25/19 Rx gabapentin 300 mg PO TID #90 cap 02/21/19 02/25/19 Rx cyclobenzaprine 10 mg PO BID PRN 02/25/19 02/25/19 History Patient History Medical History Chronic low back pain with sciatica LLE radiculopathy with LLE neuropathy (occasional) Surgical History History of back surgery Hx of arthroscopic knee surgery LEFT Family History Father Family history of diabetes mellitus ETOHism Mother No problems noted. 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 Is good strength testing. He overall appears comfortable while at rest. Results & Data Vital Signs (Past 12 Hours) Vital Signs Temp Pulse Resp BP Pulse Ox 02/26/19 11:05 36.8 C 116 H 18 100/70 95 02/26/19 08:02 37.4 C 113 H 19 126/75 91 02/26/19 04:09 37.0 C 78 16 97/74 L 93
[2019-02-26] MEDS: ACETAMINOPHEN 325 MG TAB PO PRN (15:37)
[2019-02-26] MEDS ORDERED: WARFARIN SOD 7.5 MG TAB PO ONE (16:00)
[2019-02-26] MEDS: SODIUM CHLORIDE 0.9% 1000ML 1,000 ML IV SCH (21:04)
[2019-02-27] MEDS ORDERED: POLYETHYLENE (MIRALAX) 17 GM PACK PO PRN (04:08)
[2019-02-27 06:41] LABS: Basophils # (auto) 0.01 K/uL (0-0.2); Basophils % (auto) 0.1 %; Eosinophils # (auto) 0.13 K/uL (0-0.5); Eosinophils % (auto) 1.3 %; Hematocrit (blood only) 37.1 % (42-52); Hemoglobin 12.2 g/dL (14.0-18.0); Immature Granulocytes # (auto) 0.05 K/uL (0.00-0.02); Immature Granulocytes % (auto) 0.5 %; Lymphocytes # (auto) 1.74 K/uL (1.2-3.4); Lymphocytes % (auto) 17.7 %; Mean Corpuscular Hemoglobin 26.9 pg (25-34); Mean Corpuscular Hgb Conc 32.9 g/dL (32-36); Mean Corpuscular Volume 81.9 fL (80-100); Mean Platelet Volume 9.5 fL (7.4-10.4); Monocytes # (auto) 1.13 K/uL (0.11-0.59); Monocytes % (auto) 11.5 %; Neutrophils # (auto) 6.75 K/uL (1.4-6.5); Neutrophils % (auto) 68.9 %; Platelet Count 271 K/uL (130-400); RDW Coefficient of Variation 13.3 % (11.5-14.5); RDW Standard Deviation 40.3 fL (36.4-46.3); Red Blood Count 4.53 M/uL (4.7-6.1); White Blood Count 9.81 K/uL (4.8-10.8)
[2019-02-27 06:46] LABS: INR 1.2 (0.9-1.1); Partial Thromboplastin Ratio 1.6; Partial Thromboplastin Time 44.2 Seconds (21.0-31.0); Prothrombin Time 12.2 Seconds (9.0-12.0)
[2019-02-27 07:10] LABS: BUN Creatinine Ratio 14.1 (10-20); Calcium 8.9 mg/dl (8.5-10.1); Creatinine Clr Calc Pharmacy 114.9 ml/min; Est GFR (African American) 125.1; Magnesium 2.2 mg/dl (1.8-2.4); Potassium 4.6 mmol/L (3.5-5.1)
[2019-02-27] MEDS: GABAPENTIN 300 MG CAP PO SCH ×3 (08:23→19:49)
[2019-02-27] MEDS: CELECOXIB 100 MG CAP PO SCH ×2 (08:23→17:34)
[2019-02-27] MEDS: PANTOprazole 40 MG TAB PO SCH ×2 (08:23→19:49)
[2019-02-27] MEDS ORDERED: HEPARIN IV BOLUS 3,000 UNITS in SYRINGE 0 ML IV ONE (10:00)
[2019-02-27] MEDS: HEPARIN SODIUM/DEXTROSE 25,000 UNITS/500 ML BAG IV SCH (10:34)
--- NOTE | 2019-02-27 13:15 | Hospitalist Progress Note ---
Date of Service February 27, 2019 Assessment & Plan (1) Pulmonary embolism: Provoked 38 YO male, s/p lumbar lumbar decompression/fusion on 01/28/2019 and subsequent revision on 02/20/2019. Discharged to home on 02/22/2019. Likely duration 3 to [address] Valdez We will provide with the newer anticoagulants and for 3 months duration of treatment Eliquis 10 mg twice daily for 7 days followed by Eliquis 5 mg twice daily for 3 months Discussed about side effect of medication in detail with the patient (2) Pulmonary infarct: Secondary to pulmonary embolism as above CTA Chest: 1. Acute pulmonary embolism with equivocal mild right ventricular strain 2. Small right pleural effusion 3. Bilateral lower lobe pulmonary infarcts Appreciate manager of radiology input and recommendation Echo did not show any RV strain Started on IV heparin per protocol and Coumadin; likely to continue Coumadin Bilateral venous Doppler lower extremities ordered-negative for DVT APAP, oxycodone for pain control Clinically much better today Advised more ambulation Discharge tomorrow (3) Status post lumbar surgery: S/P Revision lumbar decompression/fusion by Dr. Mas POD #5 continue gabapentin, oxycodone surgeon Dr. Mas made aware Appreciate input and recommendation Follow up: PCP Dr. Phillip Friend upon discharge along with approp follow up with Dr. Mas Subjective 02/26 The patient was seen and examined in telemetry unit Still complains of some pain left lower chest wall with deep breathing Denies any shortness of breath with No nausea no vomiting no abdominal pain 02/27 Patient was seen and examined in telemetry unit He has been feeling a lot better and the chest pain seems to be under control Denies any shortness of breath at rest Denies any fever and chills or any cough/hemoptysis Review of Systems Review of Systems: All systems reviewed and are unremarkable except as noted below Respiratory: + cough and + pain with cough Physical Exam Physical Exam: Lying in bed comfortably without any symptoms Constitutional: well developed and well nourished Eyes: PERRL, conjunctivae normal, anicteric sclerae ENMT: external ear and nose normal, oropharynx normal Neck: trachea midline, no thyromegaly Respiratory: normal respiratory effort and + cough; no respiratory distress Cardiovascular: Rate/Rhythm: regular rate and regular rhythm Heart Sounds: no murmur Gastrointestinal (Abdomen): Inspection/Auscultation: abdomen normal to inspection and normal bowel sounds Percussion/Palpation: abdomen soft Musculoskeletal: No acute arthritis in any joints Skin: no rashes, warm and dry Neurologic: moves all extremities; no focal motor deficits Lymphatic: no cervical or axillary lymphadenopathy Results & Data Vital Signs (Past 12 Hours) Vital Signs Temp Pulse Pulse Resp BP Pulse Ox 02/27/19 11:20 37.5 C 101 H 18 106/74 97 02/27/19 08:00 95 H 02/27/19 07:56 37.2 C 110 H 8 L 107/59 L 90 02/27/19 03:33 37.9 C H 103 H 19 97/66 L 93 Laboratory Results Short CBC 02/27/19 Range/Units 06:08 WBC 9.81 (4.8-10.8) K/uL Hgb 12.2 L (14.0-18.0) g/dL Hct 37.1 L (42-52) % Plt Count 271 (130-400) K/uL BMP 02/27/19 06:08 Sodium 134 L Potassium 4.6 Chloride 100 Carbon Dioxide 29 BUN 13 Creatinine 0.90 Glucose 103 H Calcium 8.9 Medications Administered Current Inpatient Medications Acetaminophen (Tylenol) 650 mg PO Q4H PRN PRN Reason: Mild Pain Stop: 03/27/19 17:48 Last Admin: 02/26/19 15:37 Dose: 650 mg Documented by: Celecoxib (Celebrex) 100 mg PO BIDM [facility] Stop: 03/28/19 07:59 Last Admin: 02/27/19 08:23 Dose: 100 mg Documented by: Cyclobenzaprine HCl (Flexeril) 10 mg PO BID PRN PRN Reason: Pain Stop: 03/27/19 17:48 Last Admin: 02/26/19 14:01 Dose: 10 mg Documented by: Gabapentin (Neurontin) 300 mg PO TID [facility] Stop: 03/27/19 20:59 Last Admin: 02/27/19 08:23 Dose: 300 mg Documented by: Hydromorphone HCl (Dilaudid) 1 mg IV Q2H PRN PRN Reason: Severe Pain Stop: 03/11/19 18:19 Last Admin: 02/25/19 18:41 Dose: 1 mg Documented by: Heparin Sodium/Dextrose (Heparin Sodium/Dextrose) 25,000 units in 500 mls @ 34 mls/hr IV .[id number] [facility]; Protocol Stop: 03/27/19 19:37 Last Admin: 02/27/19 10:34 Dose: 1,700 units/hr, 34 mls/hr Documented by: Sodium Chloride (Nss 1000ml) 1,000 mls @ 15 mls/hr IV .Q24H [facility] Stop: 03/11/19 19:49 Last Admin: 02/26/19 21:04 Dose: Not Given Documented by: Ioversol (Optiray 320 125ml) 118 ml IV ONCE PRN PRN Reason: Interaction Checking Stop: 03/01/19 13:29 Last Admin: 02/25/19 13:30 Dose: 118 ml Documented by: Naloxone HCl (Narcan) 0.1 mg IV Q5M PRN; Protocol PRN Reason: Oversedation/Resp Depression Stop: 03/11/19 19:48 Oxycodone HCl (Roxicodone Immediate Rel) 5 mg PO Q4H PRN PRN Reason: Pain, Severe Stop: 03/11/19 17:48 Last Admin: 02/26/19 15:31 Dose: 5 mg Documented by: Pantoprazole Sodium (Protonix) 40 mg PO BID [facility] Stop: 03/01/19 09:01 Last Admin: 02/27/19 08:23 Dose: 40 mg Documented by: Polyethylene Glycol (Miralax Powder Packet) 17 gm PO DAILY PRN PRN Reason: Constipation Stop: 03/29/19 04:07 Last Admin: 02/27/19 08:21 Dose: 17 gm Documented by: (1) Pulmonary embolism Acute cor pulmonale presence: without acute cor pulmonale Chronicity: unspecified Pulmonary embolism type: unspecified Qualified Code(s): I26.99 - Other pulmonary embolism without acute cor pulmonale
[2019-02-27 14:48] LABS: Partial Thromboplastin Ratio 2.1
[2019-02-27 14:53] LABS: Partial Thromboplastin Time 57.7 Seconds (21.0-31.0)
[2019-02-27] MEDS: ACETAMINOPHEN 325 MG TAB PO PRN ×2 (15:39→19:44)
[2019-02-27] MEDS: HYDROmorphone INJ 1 MG/ML SYRINGE IV PRN (19:44)
--- NOTE | 2019-02-27 21:45 | XRay Report ---
XR chest 2V routine HISTORY: Shortness of breath. r/o Pneumonia COMPARISON: Chest 02/25/2019. Chest CTA 02/25/2019. FINDINGS: Bibasilar densities and a small right pleural effusion remain unchanged. The upper lung zon es are clear. No pneumothorax. The heart is borderline enlarged. Is also unchanged. No evidence for p ulmonary edema. IMPRESSION: No change in the bibasilar densities and small right pleural effusion. This may represent atelectasis , pneumonia, or pulmonary infarcts given the patient's history of pulmonary emboli. Electronically signed by: Bala Paulson M.D. 02/27/2019 9:44 PM
[2019-02-27] MEDS: OXYCODONE HCL IR 5 MG TAB (IMMEDIATE RELEASE) PO PRN (22:44)
[2019-02-28] MEDS: SODIUM CHLORIDE 0.9% 1000ML 1,000 ML IV SCH (00:11)
[2019-02-28] MEDS: HEPARIN SODIUM/DEXTROSE 25,000 UNITS/500 ML BAG IV SCH ×2 (00:37→14:23)
[2019-02-28 06:29] LABS: Basophils # (auto) 0.03 K/uL (0-0.2); Basophils % (auto) 0.3 %; Eosinophils # (auto) 0.18 K/uL (0-0.5); Eosinophils % (auto) 1.9 %; Hematocrit (blood only) 37.2 % (42-52); Hemoglobin 12.3 g/dL (14.0-18.0); Immature Granulocytes # (auto) 0.04 K/uL (0.00-0.02); Immature Granulocytes % (auto) 0.4 %; Lymphocytes # (auto) 2.41 K/uL (1.2-3.4); Lymphocytes % (auto) 25.5 %; Mean Corpuscular Hemoglobin 27.5 pg (25-34); Mean Corpuscular Hgb Conc 33.1 g/dL (32-36); Mean Platelet Volume 9.6 fL (7.4-10.4); Monocytes # (auto) 1.23 K/uL (0.11-0.59); Neutrophils # (auto) 5.56 K/uL (1.4-6.5); Neutrophils % (auto) 58.9 %; Platelet Count 274 K/uL (130-400); RDW Coefficient of Variation 13.3 % (11.5-14.5); RDW Standard Deviation 40.5 fL (36.4-46.3); Red Blood Count 4.48 M/uL (4.7-6.1); White Blood Count 9.45 K/uL (4.8-10.8)
[2019-02-28 06:41] LABS: INR 1.2 (0.9-1.1); Partial Thromboplastin Ratio 1.4; Partial Thromboplastin Time 38.3 Seconds (21.0-31.0); Prothrombin Time 12.4 Seconds (9.0-12.0)
[2019-02-28 07:02] LABS: BUN Creatinine Ratio 14.3 (10-20); Calcium 8.9 mg/dl (8.5-10.1); Creatinine Clr Calc Pharmacy 112.4 ml/min; Est GFR (African American) 121.9; Est GFR (Non-African American) 105.1; Magnesium 2.3 mg/dl (1.8-2.4)
[2019-02-28] MEDS ORDERED: HEPARIN IV BOLUS 6,000 UNITS in SYRINGE 0 ML IV ONE (07:13)
[2019-02-28] MEDS: GABAPENTIN 300 MG CAP PO SCH ×2 (08:50→13:32)
[2019-02-28] MEDS: PANTOprazole 40 MG TAB PO SCH (08:50)
[2019-02-28] MEDS: CELECOXIB 100 MG CAP PO SCH (08:50)
--- NOTE | 2019-02-28 10:39 | Hospitalist Progress Note ---
Date of Service February 28, 2019 Assessment & Plan (1) Pulmonary embolism: Provoked 38 YO male, s/p lumbar lumbar decompression/fusion on 01/28/2019 and subsequent revision on 02/20/2019. Discharged to home on 02/22/2019. Likely duration 3 to [address] Valdez We will provide with the newer anticoagulants and for 3 months duration of treatment Eliquis 10 mg twice daily for 7 days followed by Eliquis 5 mg twice daily for 3 months Discussed about side effect of medication in detail with the patient Elected to go home this afternoon on Eliquis (2) Pulmonary infarct: Secondary to pulmonary embolism as above CTA Chest: 1. Acute pulmonary embolism with equivocal mild right ventricular strain 2. Small right pleural effusion 3. Bilateral lower lobe pulmonary infarcts Appreciate pulmonary physician input and recommendation Echo did not show any RV strain Started on IV heparin per protocol and Coumadin; likely to continue Coumadin Bilateral venous Doppler lower extremities ordered-negative for DVT APAP, oxycodone for pain control Clinically much better today Advised more ambulation Repeat chest x-ray did not show any significant change compared with prior Pleuritic pain seems to be controlled (3) Status post lumbar surgery: S/P Revision lumbar decompression/fusion by Dr. Mas POD #5 continue gabapentin, oxycodone surgeon Dr. Mas made aware Appreciate input and recommendation Follow up: PCP Dr. Phillip Friend upon discharge along with approp follow up with Dr. Mas Advised to ambulate more in the hallway Likely be discharged this afternoon Subjective 02/26 The patient was seen and examined in telemetry unit Still complains of some pain left lower chest wall with deep breathing Denies any shortness of breath with No nausea no vomiting no abdominal pain 02/27 Patient was seen and examined in telemetry unit He has been feeling a lot better and the chest pain seems to be under control Denies any shortness of breath at rest Denies any fever and chills or any cough/hemoptysis 02/28 Patient was seen and examined in the telemetry unit He has had more pain and tachycardia last evening Chest x-ray and white count remain unremarkable He does not have significant pain and he has been ambulating well Likely be discharged this afternoon Review of Systems Review of Systems: All systems reviewed and are unremarkable except as noted below Respiratory: + cough and + pain with cough Physical Exam Physical Exam: Lying in bed comfortably Constitutional: well developed and well nourished; no acute distress and not ill appearing Eyes: PERRL, conjunctivae normal, anicteric sclerae ENMT: external ear and nose normal, oropharynx normal Neck: trachea midline, no thyromegaly Respiratory: normal respiratory effort and + cough; no respiratory distress Cardiovascular: Rate/Rhythm: regular rate and regular rhythm Heart Sounds: no murmur Gastrointestinal (Abdomen): Inspection/Auscultation: abdomen normal to inspection and normal bowel sounds Percussion/Palpation: abdomen soft Musculoskeletal: Extremities: strength 5/5 throughout Skin: no rashes, warm and dry Neurologic: moves all extremities; no focal motor deficits Lymphatic: no cervical or axillary lymphadenopathy Results & Data Vital Signs (Past 12 Hours) Vital Signs Temp Pulse Pulse Resp BP Pulse Ox 02/28/19 08:00 37.3 C 99 H 95 H 18 105/69 94 02/28/19 03:30 36.7 C 86 17 92/61 L 94 02/27/19 23:40 37.0 C 87 17 95/59 L 92 02/27/19 23:00 104 H Laboratory Results Short CBC 02/28/19 Range/Units 06:10 WBC 9.45 (4.8-10.8) K/uL Hgb 12.3 L (14.0-18.0) g/dL Hct 37.2 L (42-52) % Plt Count 274 (130-400) K/uL BMP 02/28/19 06:10 Sodium 135 L Potassium 4.0 Chloride 100 Carbon Dioxide 30 BUN 13 Creatinine 0.92 Glucose 97 Calcium 8.9 Medications Administered Current Inpatient Medications Acetaminophen (Tylenol) 650 mg PO Q4H PRN PRN Reason: Mild Pain Stop: 03/27/19 17:48 Last Admin: 02/27/19 19:44 Dose: 650 mg Documented by: Celecoxib (Celebrex) 100 mg PO BIDM [facility] Stop: 03/28/19 07:59 Last Admin: 02/28/19 08:50 Dose: 100 mg Documented by: Cyclobenzaprine HCl (Flexeril) 10 mg PO BID PRN PRN Reason: Pain Stop: 03/27/19 17:48 Last Admin: 02/26/19 14:01 Dose: 10 mg Documented by: Gabapentin (Neurontin) 300 mg PO TID [facility] Stop: 03/27/19 20:59 Last Admin: 02/28/19 08:50 Dose: 300 mg Documented by: Hydromorphone HCl (Dilaudid) 1 mg IV Q2H PRN PRN Reason: Severe Pain Stop: 03/11/19 18:19 Last Admin: 02/27/19 19:44 Dose: 1 mg Documented by: Heparin Sodium/Dextrose (Heparin Sodium/Dextrose) 25,000 units in 500 mls @ 40 mls/hr IV .[id number] [facility]; Protocol Stop: 03/27/19 19:37 Last Titration: 02/28/19 07:12 Dose: 2,000 units/hr, 40 mls/hr Documented by: Sodium Chloride (Nss 1000ml) 1,000 mls @ 15 mls/hr IV .Q24H [facility] Stop: 03/11/19 19:49 Last Admin: 02/28/19 00:11 Dose: Not Given Documented by: Ioversol (Optiray 320 125ml) 118 ml IV ONCE PRN PRN Reason: Interaction Checking Stop: 03/01/19 13:29 Last Admin: 02/25/19 13:30 Dose: 118 ml Documented by: Naloxone HCl (Narcan) 0.1 mg IV Q5M PRN; Protocol PRN Reason: Oversedation/Resp Depression Stop: 03/11/19 19:48 Oxycodone HCl (Roxicodone Immediate Rel) 5 mg PO Q4H PRN PRN Reason: Pain, Severe Stop: 03/11/19 17:48 Last Admin: 02/27/19 22:44 Dose: 5 mg Documented by: Pantoprazole Sodium (Protonix) 40 mg PO BID [facility] Stop: 03/01/19 09:01 Last Admin: 02/28/19 08:50 Dose: 40 mg Documented by: Polyethylene Glycol (Miralax Powder Packet) 17 gm PO DAILY PRN PRN Reason: Constipation Stop: 03/29/19 04:07 Last Admin: 02/27/19 08:21 Dose: 17 gm Documented by: (1) Pulmonary embolism Acute cor pulmonale presence: without acute cor pulmonale Chronicity: unspecified Pulmonary embolism type: unspecified Qualified Code(s): I26.99 - Other pulmonary embolism without acute cor pulmonale
[2019-02-28] MEDS ORDERED: SOD PHOSPHATE/SOD BIPHOSPHATE ENEMA 132 ML BTL PR STA (12:50)
[2019-02-28] MEDS ORDERED: APIXABAN 5 MG TABLET PO SCH (15:00)
[2019-02-28 15:01] LABS: Partial Thromboplastin Ratio 1.8
[2019-02-28 15:18] LABS: Partial Thromboplastin Time 48.7 Seconds (21.0-31.0)
--- NOTE | 2019-02-28 17:58 | Discharge Summary ---
Date of Service February 28, 2019 Admission HPI Per Admitting Provider This is a 38-year-old male no significant past medical history who presents to [facility] ED secondary to shortness of breath x 3 days. is at bedside. Of significance patient had 2 recent spinal surgeries secondary to lumbar spinal stenosis with neurogenic claudication. On 01/28 patient underwent lumbar decompression fusion L4-L5, L5-S1 by Dr. Mas. He was discharged from hospital on 02/01. Initially tolerated procedure well but unfortunately several days postoperatively he began experiencing severe left leg pain which prompted him to be present back to Dr. Mas office. At that time he was admitted on 02/19 to undergo revision of prior procedure. On 02/20 he underwent revision of lumbar decompression fusion L5-S1 secondary to migration of hardware. He was discharged on 02/22. On the day of discharge he was doing well; however, the next day he developed dyspnea on exertion, difficulty taking deep breath, shallow breathing, pleuritic right-sided chest pain. Symptoms worsened which prompted him to be seen in the ED. He further elicits he felt similar symptoms that day prior to his lumbar revision, but thought it was just related to his surgery. He further complains of lightheaded/dizzy with ambulation, R sided flank pain with radiation to anterior R rib cage that comes and goes, stabbing in severity, worse with deep breathing, last for secs before remitting. Mildly improved with morphine in ED. He otherwise denies recent illness, f/c/s, overt chest pain, cough, hemopytsis, n/v/d, abdominal pain, dysuria, increased urg/freq with urination, hematuria, melena, hematochezia. Last Bm few days ago. Appetite has been poor. feels pt has looks very pale. Admission Exam Per Admitting Provider Physical Exam: Constitutional: WD/WN, vitals as above, NAD, sitting up in bed, pleasant, conversing easily Head: Normocephalic, Atraumatic Eyes: PERRL, conjunctivae normal, anicteric sclerae ENMT: external ear and nose normal, oropharynx normal Neck: trachea midline, no thyromegaly normal visual inspection Respiratory: normal respiratory effort, lungs clear to auscultation, no wheeze, rales, rhonchi. Normal insp/exp effort, no accessory muscle use Cardiovascular: tachycardic rate, regular rhythm, no murmur, no edema Vessels: no JVD or carotid bruit Chest: normal inspection of chest Abdomen: normal bowel sounds, soft, nontender, no hepatosplenomegaly Musculoskeletal: no cyanosis or clubbing, extremities motor strength 5/5 Skin: no rashes, warm and dry normal turgor, Neurologic: PERRL, EOMI, accommodation nl, no face palsy, no dysarthria CN's II-XI intact bilaterally and moves all extremities Psychiatric: A+Ox3, euthymic affect Lymphatic: no cervical or axillary lymphadenopathy : deferred Principal Diagnosis Pulmonary embolism, pulmonary infarct, status post lumbar back surgery Discharge Exam Constitutional WD/WN, vitals as above well developed and well nourished; no acute distress and not ill appearing Eyes PERRL, conjunctivae normal, anicteric sclerae ENMT external ear and nose normal, oropharynx normal Neck trachea midline, no thyromegaly Respiratory normal respiratory effort and + cough; no respiratory distress Cardiovascular Rate/Rhythm: regular rate and regular rhythm Heart Sounds: no murmur Gastrointestinal (Abdomen) normal bowel sounds, soft, nontender, no hepatosplenomegaly Inspection/Auscultation: abdomen normal to inspection and normal bowel sounds Percussion/Palpation: abdomen soft Musculoskeletal Extremities: strength 5/5 throughout Skin no rashes, warm and dry Neurologic moves all extremities; no focal motor deficits Lymphatic no cervical or axillary lymphadenopathy Discharge Data Allergies Allergy/AdvReac Type Severity Reaction Status Date / Time No Known Allergies Allergy Verified 02/25/19 12:56 Consultations 02/25/19 14:44 ED Decision to Admit Stat 02/25/19 16:01 Consult Hoisting Engineer Routine 02/25/19 17:49 Consult Case Management - Discharge Planning Routine 02/25/19 17:57 Consult Orthopedic Surgery Routine Ordered Studies 02/25/19 12:02 CT angio chest PE protocol Stat 02/25/19 17:35 US venous doppler LE Routine Hospital Course (1) Pulmonary embolism: Provoked 38 YO male, s/p lumbar lumbar decompression/fusion on 01/28/2019 and subsequent revision on 02/20/2019. Discharged to home on 02/22/2019. Likely duration 3 to [address] Valdez We will provide with the newer anticoagulants and for 3 months duration of treatment Eliquis 10 mg twice daily for 7 days followed by Eliquis 5 mg twice daily for 3 months Discussed about side effect of medication in detail with the patient Elected to go home this afternoon on Eliquis (2) Pulmonary infarct: Secondary to pulmonary embolism as above CTA Chest: 1. Acute pulmonary embolism with equivocal mild right ventricular strain 2. Small right pleural effusion 3. Bilateral lower lobe pulmonary infarcts Appreciate principal statistical programmer input and recommendation Echo did not show any RV strain Started on IV heparin per protocol and Coumadin; likely to continue Coumadin Bilateral venous Doppler lower extremities ordered-negative for DVT APAP, oxycodone for pain control Clinically much better today Advised more ambulation Repeat chest x-ray did not show any significant change compared with prior Pleuritic pain seems to be controlled (3) Status post lumbar surgery: S/P Revision lumbar decompression/fusion by Dr. Mas POD #5 continue gabapentin, oxycodone surgeon Dr. Mas made aware Appreciate input and recommendation Follow up: PCP Dr. Phillip Friend upon discharge along with approp follow up with Dr. Mas Advised to ambulate more in the hallway Likely be discharged this afternoon Total Time Total Time Spent Total Time Spent (In Minutes): 35 minutes Total Time Includes: Examination of the Patient, Discharge Planning, Medication Reconciliation and Communication With Other Providers Discharge Plan Discharge Items Patient Disposition: Home - Self-Care Reason For Visit: PE,MILD R HEART STRAIN Discharge Diagnosis: Pulmonary embolism, pulmonary infarct, status post lumbar back surgery Condition on Discharge: Good Activity: Resume your previous activity Activity Comment: As per recommendation from orthopedic surgery Non-emergency contact: Primary Care Provider Call non-emergency contact if: you have any medication questions and your symptoms worsen Follow-up/Referrals: Phillip Friend PA-C [Primary Care Provider] - 03/06/19 12:45 pm (Keep scheduled appointment with your orthopedic surgeon) Diet: Heart Healthy Addtl Attending Provider Instructions: Please take precaution to avoid falls New medications: Eliquis for provoked pulmonary embolism, should be continued for at least 3 months. Pending Studies at Discharge: No Stand-Alone Forms: My [facility] Medications and DC Order Prescriptions: New pantoprazole 40 mg Tablet,Delayed Release (Dr/Ec) 40 mg PO DAILY 30 Days Qty: 30 RF: 0 Eliquis 5 mg tablet 5 mg PO UD Qty: 74 RF: 0 Eliquis 5 mg tablet 5 mg PO BID Qty: 60 RF: 5 Continued oxycodone 5 mg Tablet 5 mg PO Q4H PRN (Reason: Pain, Severe) Qty: 30 RF: 0 gabapentin 300 mg Capsule 300 mg PO TID Qty: 90 RF: 0 cyclobenzaprine 10 mg tablet 10 mg PO BID PRN (Reason: Pain) RF: 0 Discharge Orders: Discharge Order (Routine); Ordered 02/28/19 Ordered By: Flori Montero/Other Patient Handouts: Pantoprazole Sodium Gastro-resistant tablet, Apixaban Oral tablet, Embolism Pulmonary Admission Data Admit Date/Time: 02/25/19 16:01 Attending Provider: Flori Angelo Admit Provider: Vasile Reyes Primary Care Provider: Phillip Friend Other Providers: Vasile Reyes ; Alberto May ; Reji Mas Other Interventions: Discharge Summary Assessment (RN) Last Done: 02/28/19 15:00 DC Date/Time DO NOT enter until pt leaves facility: 02/28/19 16:02
--- NOTE | 2019-03-05 09:35 | Coding Query ---
CODING QUERY To promote full compliance with coding requirements relating to patient care, provider participation is requested in all cases of inpatient coder uncertainty. Please assist us with the question(s) below: Coding Question(s): Patient admitted with pulmonary embolus . Hx of recent 02/19 back fusion revision. Please check below the statement that pertains to the Pulmonary Embolus. Thank you ! AIDAN Lundy [facility] Physician's Response(s): ___X____ The pulmonary embolus is a complication of the the prior back surgery The pulmonary embolus is not a complication of the prior back surgery Cannot clinically correlate if the pulmonary embolus is a complication of the surgery Other: please document: Principal Diagnosis: "that condition established after study, to be chiefly responsible for occasioning the admission of the patient to the hospital for care." Co-Existing Principal Diagnosis: "when two or more diagnoses equally meet the criteria for principal diagnosis as determined by the circumstances of admission, diagnostic work up, and/or therapy provided, and the Alphabetic Index, Tabular List, or another coding guideline does not provide sequencing direction, any one of the diagnoses may be sequenced first." "When the physician has documented what appears to be a current diagnosis in the body of the record, but has not included the diagnosis in the final diagnostic statement, the physician should be asked whether the diagnosis should be added." (Source Coding Clinic 2 QTR90. p3-4) GLORIA
== END 2019-02-28 16:02 | disposition home or self-care (01) | DRG 205 ==
LOC: ED 11:50 → 1E 16:01 → SUATTDRO 16:01 → 1E 17:01 → 2E 18:23